=== PATIENT | female | born 1985 | race Caucasian/White ===

== ENCOUNTER 2024-12-28 08:14 | Emergency (ER) | payer OTHER, SELFPAY ==
[2024-12-28] VITALS (17 sets, daily range): BP systolic 98–125; BP diastolic 52–90; PULSE 72–125; RESP 13–34; TEMP 36.4; O2SAT 96–100
--- NOTE | ~2024-12-28 | US_ITS ---
EXAMINATION: US pelvic complete w TV INDICATION: Lower abdomen pain. Right lower quadrant pain. Comparison:CT dated 12/28/2024 TECHNIQUE: Multiple transabdominal and endovaginal sonographic images of the pelvis performed. FINDINGS: The uterus measures 6.8 x 3.6 x 4.6 cm. There is a section scar involving the uter us. The endometrial complex measures 5.8 mm. The right ovary measures 2.7 x 2.9 x 1.2 cm and the left ovary measures 2.5 x 1.8 x 2.3 cm. There ar e small follicles in each ovary. Normal doppler signal in both ovaries. There is no free fluid in the pelvis. There are no abnormal masses seen on either side. IMPRESSION: 1. Unremarkable pelvic ultrasound. Reviewed, dictated and finalized at location A.
--- NOTE | ~2024-12-28 | CT_ITS ---
CLINICAL INDICATION: Right lower quadrant pain and leukocytosis COMPARISON: None. TECHNIQUE: Multiple contiguous axial images of the abdomen and pelvis were performed following the ad ministration of with 100 mL Omnipaque-350 intravenous contrast The dose-length product (DLP) was 414.96 mGy-cm. Automated exposure control and iterative reconstruction technique were employed. FINDINGS/OBSERVATIONS: Visualized lower thorax: The bilateral lung bases are clear. The heart is of normal size, without pericardial effusion. Small hiatal hernia is present. Liver: The liver demonstrates homogeneous enhancement and is not enlarged. Gallbladder and biliary system: The gallbladder is only minimally distended, and otherwise unremarkable. Pancreas: The pancreas enhances homogeneously without ductal dilatation. Spleen: The spleen enhances homogeneously and is not enlarged. Kidneys: The bilateral kidneys enhance symmetrically without hydronephrosis or renal calculi. Adrenal glands: Unremarkable. Gastrointestinal tract: Fecal stasis within the colon. Appendix: The appendix is not definitively visualized. However, no pericecal inflammatory change is identified suggest the presence of acute appendicitis. Vasculature: Unremarkable. Lymph nodes: No pathologically enlarged or morphologically suspicious lymph nodes within the retroperitoneum or at the root of the mesentery. Pelvic structures: The bladder is markedly distended, and otherwise unremarkable. The uterus is anteverted and anteflexed. Body wall and musculoskeletal: Small fat-containing umbilical hernia. No significant degenerative disease within the lower thoracic or lumbosacral spine. IMPRESSION: The appendix is not definitively visualized. However, no pericecal inflammatory change is identified suggest the presence of acute appendicitis. Significant bladder distention Reviewed, dictated and finalized at location A.
[2024-12-28 08:32] LABS: Basophils Absolute Auto 0.1 K/mm3 (0.0-0.1); Basophils Percent Auto 0.8 % (0.2-1.2); Eosinophils Absolute Auto 0.2 K/mm3 (0-0.3); Eosinophils Percent Auto 1.5 % (0-4.4); Hematocrit 39.8 % (37.0-47.0); Hemoglobin 13.2 g/dL (12.0-15.0); Immature Granulocyte Absolute 0.05 K/mm3 (0.00-0.031); Immature Granulocyte Percent A 0.3 % (0-0.5); Lymphocytes Absolute Auto 3.55 K/mm3 (0.9-3.2); Lymphocytes Percent Auto 24.6 % (18.3-44.2); Mean Corpuscular HGB Conc 33.2 g/dl (32-36); Mean Corpuscular Hemoglobin 29.4 pg (26-34); Mean Corpuscular Volume 88.6 fl (80-100); Mean Platelet Volume 9.5 fl (7.4-10.4); Monocytes Absolute Auto 0.8 K/mm3 (0.1-0.6); Monocytes Percent Auto 5.8 % (2.6-8.5); Neutrophils Absolute Auto 9.7 K/mm3 (1.3-6.7); Platelet Count Result 354 k/mm3 (150-375); Red Blood Count 4.49 M/mm3 (4.2-5.4); Red Cell Distribution Width 12.9 % (11.5-14.5); White Blood Count 14.4 K/mm3 (4.5-10.0)
[2024-12-28 08:47] LABS: Alanine Aminotransferase 26 U/L (6-35); Albumin Level 4.7 g/dL (3.5-5.1); Alkaline Phosphatase 176 U/L (38-126); Anion Gap 17 mmol/L (4-12); Aspartate Amino Transferase 25 U/L (14-36); Bilirubin,Total 0.6 mg/dL (0.2-1.3); Blood Urea Nitrogen 10 mg/dL (7-17); Calcium 9.8 mg/dL (8.4-10.2); Carbon Dioxide 18 mmol/L (22-30); Chloride 104 mmol/L (98-107); Estimated CRCL calculation 105 ml/min; Estimated Glomerular Filt Rate > 60; Glucose 114 mg/dL (65-110); Lipase 76 U/L (23-300); Potassium 3.3 mmol/L (3.4-5.0); Sodium 139 mmol/L (137-145)
--- NOTE | 2024-12-28 09:16 | ED_ITS ---
HPI - Abdominal Pain General Chief Complaint: Abdominal Pain Stated Complaint: RLQ pain Time Seen by Provider: 12/28/24 09:02 Source: patient Mode of arrival: ambulatory Limitations: no limitations History of Present Illness HPI narrative: Patient is a 39 y/o female who presents to the ED with c/o lower abdominal pain. Patient reports pain began around 3am overnight. Present throughout mid to lower abdomen, into right lower abdomen, radiating around to R lower back. Pain has been constant since the onset, but more severe since around 6am. Patient has not taken anything for pain. Denies history of similar pain. No previous history of kidney stones, ovarian cysts. Reported some intermittent nausea overnight. Denies vomiting, diarrhea, constipation, fevers, urinary complaints. Related Data Allergies Allergy/AdvReac Type Severity Reaction Status Date / Time ondansetron (From Zofran) AdvReac Intermediate Headache Verified 12/28/24 08:15 Review of Systems 2 Review of Systems: All systems reviewed & are unremarkable except as noted in HPI. All systems reviewed & are unremarkable except as noted in HPI and below Exam 2 Narrative: GENERAL: Uncomfortable appearing, well-nourished, non-toxic, in moderate acute distress d/t pain. HEAD: Normocephalic, atraumatic. RESPIRATORY: Airway patent, respirations nonlabored. Clear to auscultation bilaterally, no rales, rhonchi, wheezing. CARDIOVASCULAR: Regular rate and rhythm without murmurs, rubs, or gallops. ABDOMINAL: Soft, diffuse TTP throughout lower abdomen, RLQ, R lateral abdomen, R CVA region. No appreciable rebound tenderness. Nondistended. Normoactive BS. MUSCULOSKELETAL: Moves all extremities. No gross deformities. SKIN: Warm, dry, normal color. NEURO: A&O X3. Speech clear. Cranial nerves II-XII grossly intact. Steady gait. No ataxic movements. PSYCHIATRIC: Anxious, tearful. Normal interaction. Course Vital Signs Vital signs: Vital Signs Temperature 97.6 F 12/28/24 08:23 Pulse Rate 125 H 12/28/24 08:23 Respiratory Rate 34 H 12/28/24 08:23 Blood Pressure 125/52 L 12/28/24 08:23 Pulse Oximetry 100 12/28/24 08:23 Temperature 97.6 F 12/28/24 08:23 Pulse Rate 84 12/28/24 14:28 Respiratory Rate 14 12/28/24 14:28 Blood Pressure 113/74 12/28/24 14:28 Pulse Oximetry 100 12/28/24 14:28 MDM - Abdominal Pain MDM Narrative Medical decision making narrative: Patient presented to ED with diffuse lower abdominal tenderness, right flank pain. Pain began this morning. No history of similar pain. Patient moderately uncomfortable appearing upon my evaluation, tachycardic, tachypneic. She is afebrile here. Cbc with blood cell count of 14.4. Possibly reactive. CMP with potassium 3.3. Will replace. Bicarb 18, anion gap of 17. Fluids initiated. Stable kidney function. Blood glucose within normal range. Normal LFTs and lipase. UA clear. CT of abdomen/pelvis was obtained and showing some bladder distention. Did not fully visualize appendix, but no pericecal inflammatory stranding to suggest acute appendicitis. Patient was given pain medication in the ED. On re-evaluation, she is feeling much improved. Now resting comfortably. On repeat abdominal exam, she has some tenderness in left lower quadrant, right upper quadrant. No significant focal right lower quadrant tenderness. I have low suspicion for appendicitis at this time. Discussed possibility of constipation, gas pains. Patient reports her last bowel movement was yesterday and was normal. Personal review of CT imaging does show a moderate amount of stool throughout right colon. Will also obtain ultrasound of pelvis to rule out ovarian etiology. Pelvic ultrasound unremarkable. Discussed lab and imaging findings extensively with patient. Patient has not required anything further for pain. She is feeling improved. Feel she is safe for discharge home at this time. Recommended close outpatient follow-up with primary care doctor for further evaluation. Discussed constipation management. Discussed strict return precautions. She agrees with plan. Discharged in stable condition. Medical Records Attestation: I reviewed the patient's medical records. Lab Data Attestation: I reviewed the patient's lab results. 12/28/24 08:26 12/28/24 08:26 Labs: Lab Results 12/28/24 12/28/24 12/28/24 Range/Units 08:26 10:12 10:13 WBC 14.4 H (4.5-10.0) K/mm3 RBC 4.49 (4.2-5.4) M/mm3 Hgb 13.2 (12.0-15.0) g/dL Hct 39.8 (37.0-47.0) % MCV 88.6 (80-100) fl MCH 29.4 (26-34) pg MCHC 33.2 (32-36) g/dl RDW 12.9 (11.5-14.5) % Plt Count 354 (150-375) k/mm3 MPV 9.5 (7.4-10.4) fl Immature Gran % (Auto) 0.3 (0-0.5) % Neut % (Auto) 67.0 (45.5-73.1) % Lymph % (Auto) 24.6 (18.3-44.2) % Brooks % (Auto) 5.8 (2.6-8.5) % Eos % (Auto) 1.5 (0-4.4) % Baso % (Auto) 0.8 (0.2-1.2) % Lymph # (Auto) 3.55 H (0.9-3.2) K/mm3 Brooks # (Auto) 0.8 H (0.1-0.6) K/mm3 Eos # (Auto) 0.2 (0-0.3) K/mm3 Baso # (Auto) 0.1 (0.0-0.1) K/mm3 Abs Immat Gran (auto) 0.05 H (0.00-0.031) K/mm3 Absolute Neuts (auto) 9.7 H (1.3-6.7) K/mm3 Absolute Nucleated RBC 0.000 (0.0-0.012) K/mm3 Nucleated RBC % 0.0 (0.0-0.2) % Sodium 139 (137-145) mmol/L Potassium 3.3 L (3.4-5.0) mmol/L Chloride 104 (98-107) mmol/L Carbon Dioxide 18 L (22-30) mmol/L Anion Gap 17 H (4-12) mmol/L BUN 10 (7-17) mg/dL Creatinine 0.58 L (0.7-1.0) mg/dL Estim Creat Clear Calc 105 ml/min Estimated GFR > 60 (59 - ) Glucose 114 H (65-110) mg/dL Calcium 9.8 (8.4-10.2) mg/dL Total Bilirubin 0.6 (0.2-1.3) mg/dL AST 25 (14-36) U/L ALT 26 (6-35) U/L Alkaline Phosphatase 176 H (38-126) U/L Total Protein 9.0 H (6.3-8.2) g/dL Albumin 4.7 (3.5-5.1) g/dL Lipase 76 (23-300) U/L Urine Color Yellow (Yellow) Urine Appearance Clear (Clear) Urine pH 8.5 (5.0-9.0) Ur Specific [place] 1.004 (1.001-1.035) Urine Protein Negative (Negative) mg/dL Urine Glucose (UA) Negative (Negative) mg/dL Urine Ketones 1+ H (Negative) mg/dL Ur Blood (Man) Negative (Negative) Urine Nitrate Negative (Negative) Urine Bilirubin Negative (Negative) Urine Urobilinogen 0.2 (<2.0) mg/dL Leukocyte Esterase Rfl Negative (Negative) LUISITO/UL POC Urine HCG, Qual Negative (Negative) Imaging Data Attestation: I personally reviewed and interpreted this imaging study as follows: Radiologist's impression: ITS Impressions Abdomen/Pelvis CT 12/28/24 10:28 IMPRESSION: The appendix is not definitively visualized. However, no pericecal inflammatory change is identified suggest the presence of acute appendicitis. Significant bladder distention Pelvic/Transvag US 12/28/24 13:11 IMPRESSION: 1. Unremarkable pelvic ultrasound. Discharge Plan Discharge Clinical Impression: Lower abdominal pain Patient Disposition: Home, Self-Care Condition: Stable Instructions: Antibiotic Form, Constipation (ED), High Fiber Diet (ED), Abdominal Pain (ED) Additional Instructions: Your workup here was reassuring. Rest and stay well hydrated. Continue Tylenol and ibuprofen as needed for pain. Utilize MiraLax or stool softeners as needed for constipation. Recommended close follow-up with primary care doctor for further evaluation. Return to the ED if you experience worsening or severe pain, unable to keep down food or drink, difficulty breathing, severe constipation, rectal bleeding, dark black stools, persistent fevers, or any other symptoms of concern Patient Language: Beninese Follow-up/Referrals: UNKNOWN,DOCTOR [Primary Care Provider] - Time of Disposition: 13:23
--- OUTSIDE RECORDS SUMMARY | 2024-12-28 09:19 | XMS_ITS | Clinical Summary ---
Author Organization [facility] Address [address] [place] [address] Care Team Providers Care Scratch Brusher Name Role Phone Lucina Herndon MD Unavailable [phone] Saige Rizzo CIVIL ENGINEERING INTERN-CUSTOMER OPERATIONS ASSOCIATE Unavailable [phone] Source Comments [facility],non-owned Affiliates and Associated Physician Practices is amultiple site organization consisting of ambulatory clinics and hospital sitesin [place], [place], [place] and [place]. This disclosure is being madepursuant to the Care Everywhere program and may not contain all information available regarding this patient. Last updated 18.[facility] Allergies Active Allergy Reactions Criticality Noted Date Comments Ondansetron Headache 02/04/2017 Medications * Be aware that medications may not be up to date on this document. Alwaysverify current medications with the patient. Medication Sig Dispensed Refills Start Date End Date Status imiquimod (Aldara) 5 % cream APPLY A THIN LAYER TOPICALLY TO AFFECTED AREA AND COVER WITH DUCT TAPE EVERY NIGHT AT BEDTIME. DISCONTINUE WHEN BLISTERING OCCURS 06/18/2023 Active predniSONE (Deltasone) 20 MG tablet Take one tablet twice daily for 3 days. Take with food. Avoid NSAIDs. 6 tablet 08/12/2023 Active fluconazole (Diflucan) 150 MG tablet Take 1 tablet by mouth at symptom onset. May repeat in 3 days if not improved. 2 tablet 07/29/2024 Active Active Problems Problem Noted Date Diagnosed Date Anemia during in third trimester 09/05 Resolved Problems Problem Noted Date Diagnosed Date Resolved Date Echogenic focus of heart of fetus affecting antepartum care of mother 07/11/2019 09/05/2019 GBS (group B streptococcus) UTI complicating 06/13/2019 11/26/2019 Supervision of other normal , antepartum 05/16/2019 11/26/2019 (spontaneous vaginal delivery) 09/01/2017 10/14/2017 Supervision of normal 02/11/2017 09/01/2017 Overview (06/15/2017): [facility] Male - desires circ Peds - SW peds Desires cord blood donation GBS bacteriuria 01/29/2017 09/01/2017 Immunizations Name Administration Dates Next Due Covid Pfizer primary monoval ent 12+ yr 0.3mL Purple cap 10/11/2020,09/19/2020 MMR 11/25/2019() TDAP (7yrs+) 11/25/2019(Deferred: See Comments - pt received tdap this ),09/05/2019,06/15/2017 Family History Medical History Relation Name Comments Hypertension Father Thyroid Disease Mother Breast Cancer at or under age 50 Paternal Aunt Breast Cancer after age 50 or unknown Paternal Grandmo ther Relation Name Status Comments Brother Alive Father Alive Mother Alive Paternal Aunt Paternal Grandmother Social History Tobacco Use Types Packs/Day Years Used Date Smoking Tobacco: Never Passive Smoke Exposure: Never Smokeless Tobacco: Never Tobacco Cessation:Counseling Given: Not Answered Alcohol Use Standard Drinks/Week Comments No 0 (1 standard drink = 0.6 oz pur e alcohol) PHQ-2 Answer Date Recorded Patient Health Questionnaire-2 Score 0 07/29/2024 [place] Depression Scale Answer Date Recorded Last EPDS Total Score Not on file 01/04/2020 The thought of harming myself has occurred to me . Never 01/04/2020 Sex and Gender Information Value Date Recorded Sex Assigned at Not on file Gender Identity Female Sexual Orientation Not on file Last Filed Vital Signs Vital Sign Reading Time Taken Comments Blood Pressure 114/67 03/16/2024 9:16 AM CDT Pulse 107 03/16/2024 9:16 AM CDT Temperature 37.1 C (98.7 F) 03/16/2024 9:16 AM CDT Respiratory Rate 18 03/16/2024 9:16 AM CDT Oxygen Saturation 99% 03/16/2024 9:16 AM CDT Inhaled Oxygen Concentration - - Weight 72.6 kg (160 lb) 03/16/2024 9:16 AM CDT Height 165.1 cm (5' 5 ) 03/16/2024 9:16 AM CDT Body Mass Index 26.63 03/16/2024 9:16 AM CDT Plan of Treatment Health Maintenance Due Date Last Done Comments HEPATITIS C SCREENING 10/19/2005 HEPATITIS B VACCINE (1 of 3 - 19+ 3-dose series) 2006 COVID-19 VACCINE (2023-2 5 season) 2024 10/21/2021, 10/11/2020, 09/19/2020 INFLUENZA VACCINE (#1) 2024 06/15/2017 DEPRESSION SCREENING 09/27/2024 12/07/2022, 08/24/2022 PAP with HPV 10/28/2026 10/28/2021, 04/24/2019 DTAP/TDAP/TD VACCINES (3 - T d or Tdap) 09/05/2029 09/05/2019, 06/15/2017 ZOSTER VACCINE (1 of 2) 2037 HIV SCREENING Completed 06/09/2019, 01/25/2017 HIB VACCINE Aged Out No longer eligi ble based on patient's age to complete this topic HPV VACCINE Aged Out No longer eligi ble based on patient's age to complete this topic MENINGOCOCCAL (Group B) VACCINE SHARED DECISION-MAKING Aged Out No longer eligible based on patient's age to complete this topic MENINGOCOCCAL GROUPS A/C/Y/W VACCINE Aged Out No longer eligible b ased on patient's age to complete this topic PNEUMOCOCCAL VACCINE Aged Out No long er eligible based on patient's age to complete this topic Procedures Procedure Name Priority Date/Time Associated Diagnosis Comments PAP IG LB +HPV APTIMA REFLEX 16,18/45 FOR HR POS Routine 10/28/2021 11:25 AM DENTAL HYGIENIST Well woman exam with routine gynecological exam HIV-1 HIV-2 ANTIBODY + HIV P24 AG PANEL Routine 06/09/2019 3:44 PM CDT Supervision of other normal , antepartum from Last 3 Months or Most Recently Relevant to Health Maintenance Results * PAP IG LB +HPV APTIMA REFLEX 16,18/45 FOR HR POS (10/28/2021 11:25 AM DENTAL HYGIENIST) Diagnosis [facility] ACCOUNT BILL Comment: NEGATIVE FOR INTRAEPITHELIAL LESION OR MALIGNANCY. REACTIVE CELLULAR CHANGES AND/OR REPAIR ARE PRESENT. Specimen Adequacy [facility] ACCOUNT BILL Comment: Satisfactory for evaluation. Endocervical and/or squamous metaplastic cells (endocervical component) are present. Clinician Provided ICD10 [facility] ACCOUNT BILL Comment: Z01.419 Z30.432 Performed by [facility] ACCOUNT BILL Comment:Marcia Franco, Cytote chnologist (ASCP) Electronically Signed by [facility] ACCOUNT BILL Comment:Camryn Graham MD, Pa thologist Comment . [facility] ACCOUNT BILL Note [facility] ACCOUNT BILL Comment: The Pap smear is a screening test designed to aid in the detection of premalignant and malignant conditions of the uterine cervix. It is not a diagnostic procedure and should not be used as the sole means of detecting cervical cancer. Both false-positive and false-negative reports do occur. . IGLBP CPT Code Automation [facility] ACCOUNT BILL Comment: This liquid based ThinPrep(R) pap test was screened with the use of an image guided system. Human papillomavirus Aptima Negative Negative [facility] ACCOUNT BILL Comment: This nucleic acid amplification test detects fourteen high-risk HPV types (16,18,31,33,35,39,45,51,52,56,58,59,66,68) without differentiation. ENTIRE ENDOCERVIX / Unknown 10/28/2021 11:25 AM DENTAL HYGIENIST 10/29/2021 Narrative [facility] ACCOUNT BILL - 10/31/2021 5:08 PM DENTAL HYGIENIST No. of containers..01 ThinPrep Vial Resulting Agency Comment Lab Testing performed at: [address] [id number] Christy Gordon MD LAB - PATHOLOGY/CYTO LOGY ORDERABLES [facility] ACCOUNT BILL [address] [place] [address] * HIV-1 HIV-2 ANTIBODY + HIV P24 AG PANEL (06/09/2019 3:44 PM CDT) HIV Screen 4th Generation w Reflex Non Reactive Non Reactive [facility] ACCOUNT BILL Blood BLOOD SPECIMEN / Unknown 06/09/2019 3:44 PM CDT 06/09/2019 Narrative Resulting Agency Comment Lab Testing performed at: [facility] [place] [address] [facility] [id number] Christy Gordon MD LAB - CHEMISTRY BAM ZAMORA [facility] ACCOUNT BILL [address] [place] [address] from Last 3 Months or Most Recently Relevant to Health Maintenance Advance Directives Documents on File Type Date Recorded Patient Associate Professor Of Biostatistics Expl anation Adv Directive/Living Will/POA 02/04/2017 * Full Code (Latest Code Status on File) Date Activated Date Inactivated Comments 11/23/2019 5:09 AM 11/27/2019 4:16 PM * Full Code Date Activated Date Inactivated Comments 08/31/2017 10:37 PM 09/03/2017 3:30 PM * Full Code Date Activated Date Inactivated Comments 02/23/2017 7:52 PM 02/23/2017 10:48 PM * Full Code Date Activated Date Inactivated Comments 02/12/2017 10:24 PM 02/14/2017 5:52 PM Care Teams Scratch Brusher Relationship Specialty Start Date End Date Saige Rizzo, CIVIL ENGINEERING INTERN-CUSTOMER OPERATIONS ASSOCIATE [address] [place] [address] PCP - Attributed-[employer] [facility] 08/27/24 Lucina Herndon MD Internal Medicine 02/04/17
--- OUTSIDE RECORDS SUMMARY | 2024-12-28 09:19 | XMS_ITS | Encounter Summary ---
Author Organization [facility] Address [address] [place] [address] Care Team Providers Care Can Labeler Name Role Phone Lucina Herndon MD Primary Care Provider Lucina Herndon MD Unavailable Afua Chambers PROMOS EXECUTIVE PRODUCER-ATHLETIC TEAM PHYSICIAN Unavailable [phone] Afua Chambers PROMOS EXECUTIVE PRODUCER-ATHLETIC TEAM PHYSICIAN Unavailable [phone] Saige Rizzo PROMOS EXECUTIVE PRODUCER-ATHLETIC TEAM PHYSICIAN Unavailable Lucina Herndon MD Unavailable Encounter Details Date Type Department Care Team (Late st Contact Info) Description 04/29/2015 Lab Requisition [facility] [address] [place] [address] Unknown, Provider Social History Tobacco Use Types Packs/Day Years Used Date Smoking Tobacco: Never Assessed Sex and Gender Information Value Date Recorded Sex Assigned at Not on file Gender Identity Female Sexual Orientation Not on file documented as of this encounter Plan of Treatment Not on file documented as of this encounter Procedures Procedure Name Priority Date/Time Associated Diagnosis Comments RUBEOLA ANTIBODY IGG Routine 04/29/2015 3:47 PM CDT MUMPS ANTIBODY IGG Routine 04/29/2015 3: 47 PM CDT VARICELLA ZOSTER ANTIBODY IGG Routine 04/29/2015 3:47 PM CDT RUBELLA ANTIBODY IGG Routine 04/29/2015 3:47 PM CDT HEPATITIS B SURFACE ANTIBODY Routine 04/29/2015 3:47 PM CDT documented in this encounter Results * VARICELLA ZOSTER ANTIBODY IGG (04/29/2015 3:47 PM CDT) Varicella zoster Virus Antibody IgG 2986.0 IV 05/01/2015 2:06 PM CDT [facility] ([facility]) Comment: INTERPRETIVE INFORMATION: VZV Ab, IgG 134 IV or less ....... Negative - No significant level of detectable IgG varicella- zoster antibody. 135 -165 IV .......... Equivocal - Repeat testing in 10-14 days may be helpful. 166 IV or greater .... Positive - IgG antibody to varicella-zoster detected, which may indicate a current or past varicella-zoster infection. The best evidence for current infection is a significant change on two appropriately timed specimens, where both tests are done in the same laboratory at the same time. Blood specimen (specimen) BLOOD SPECIMEN / Unknown Venipuncture / Unknown 04/29/2015 3:47 PM CDT 04/29/2015 6:06 PM CDT Provider Unknown LAB - CHEMISTRY BAM ZAMORA [facility] Organization Address City/State/ZIP Co de Phone Number [facility]) [address] * RUBEOLA ANTIBODY IGG (04/29/2015 3:47 PM CDT) Measles (Rubeola) Antibody IgG >300.0 AU/mL 05/01/2015 3:59 PM CDT [facility] ([facility]) Comment: INTERPRETIVE INFORMATION: Measles (Rubeola) Antibody, IgG 24.9 AU/mL or less........ Negative - No significant level of detectable measles (rubeola) IgG antibody. 25.0-29.9 AU/mL .......... Equivocal - Repeat testing in 10-14 days may be helpful. 30.0 AU/mL or greater .... Positive - IgG antibody to measles (rubeola) detected which may indicate a current or past exposure/immunization to measles (rubeola). The best evidence for current infection is a significant change on two appropriately timed specimens, where both tests are done in the same laboratory at the same time. Blood specimen (specimen) BLOOD SPECIMEN / Unknown Venipuncture / Unknown 04/29/2015 3:47 PM CDT 04/29/2015 6:06 PM CDT Provider Unknown LAB - CHEMISTRY BAM ZAMORA Performing Organization Address [facility] Co de Phone Number [facility] [address] * MUMPS ANTIBODY IGG (04/29/2015 3:47 PM CDT) Mumps Virus Antibody IgG 223.0 AU/mL 05/01/2015 2:03 PM CDT [facility] ([facility]) Comment: INTERPRETIVE INFORMATION: Mumps Ab, IgG by SAUL 8.9 AU/mL or less .... Negative - No significant level of detectable IgG mumps virus antibody 9.0-10.9 AU/mL ....... Equivocal - Repeat testing in 10-14 days may be helpful 11.0 AU/mL or greater: Positive - IgG antibody to mumps virus detected, which may indicate a current or past exposure/ immunization to mumps virus. The best evidence for current infection is a significant change on two appropriately timed specimens, where both tests are done in the same laboratory at the same time. Blood specimen (specimen) BLOOD SPECIMEN / Unknown Venipuncture / Unknown 04/29/2015 3:47 PM CDT 04/29/2015 6:06 PM CDT Provider Unknown LAB - CHEMISTRY BAM ZAMORA Performing Organization Address [facility] Co de Phone Number [facility] [address] * RUBELLA ANTIBODY IGG (04/29/2015 3:47 PM CDT) Rubella Antibody IgG Positive - Immune 04/29/2015 7:33 PM CDT [facility] Blood BLOOD SPECIMEN / Unknown Venipuncture / Unknown 04/29/2015 3:47 PM CDT 04/29/2015 6:06 PM CDT Provider Unknown LAB - SEROLOGY ORDER FRANK Performing Organization Address [facility] Co de Phone Number [facility] [address] [place] [address] * (ABNORMAL) HEPATITIS B SURFACE ANTIBODY (04/29/2015 3:47 PM CDT) HBsAb REACTIVE(A ) Non Reactive 04/29/2015 7:15 PM CDT [facility] Blood BLOOD SPECIMEN / Unknown Venipuncture / Unknown 04/29/2015 3:47 PM CDT 04/29/2015 6:06 PM CDT Provider Unknown LAB - CHEMISTRY ORDE SERA Performing Organization Address [facility] Co de Phone Number [facility] [address] [place] [address] documented in this encounter Visit Diagnoses Not on filedocumented in this encounter Additional Health Concerns Infection Onset Date Last Indicated Resolved Time COVID-19 Under Investigation 08/05/2021 08/05/2021 08/06/2021 2:32 AM MEDIA MONITOR COVID-19 Under Investigation 09/14/2021 09/14/2021 09/14/2021 11:45 AM MEDIA MONITOR COVID-19 Under Investigation 09/29/2021 09/29/2021 09/30/2021 6:42 AM MEDIA MONITOR COVID-19 Confirmed 09/29/2021 09/29/2021 4:33 AM MEDIA MONITOR documented as of this encounter Care Teams Can Labeler Relationship Specialty Start Date End Date Lucina Herndon MD PCP - General Internal Medicine 02/25/16 02/03/17 Afua Chambers APRN-ATHLETIC TEAM PHYSICIAN [address] [address] PCP - Attributed-[facility] 09/27/23 02/10/24 Afua Chambers, PROMOS EXECUTIVE PRODUCER-ATHLETIC TEAM PHYSICIAN [address] [address] PCP - Attributed-[facility] 03/27/24 08/26/24 Saige Rizzo, PROMOS EXECUTIVE PRODUCER-ATHLETIC TEAM PHYSICIAN [address] [place] [address] PCP - Attributed-[facility] [address] 08/27/24 Lucina Herndon MD [address] [place] [address] [address] [address] PCP - Attributed-[facility] 03/12/17 09/29/18 Lucina Herndon MD Internal Medicine 02/04/17 documented as of this encounter
[2024-12-28] MEDS: SODIUM CHLORIDE 0.9% IV 1,000 ML 999 ML IV CONT (09:20)
[2024-12-28] MEDS: MORPHINE SULFATE (*CRX) 4 MG/ML INJ IV PUSH (09:20)
--- OUTSIDE RECORDS SUMMARY | 2024-12-28 09:20 | XMS_ITS | Clinical Summary ---
Author Organization [facility] Address [address] [place] [address] Care Team Providers Care Data Management Consultant Name Role Phone Annalisa Ramachandran MD Primary Care Provider + Allergies Active Allergy Reactions Criticality Noted Date Comments Ondansetron Headache 10/23/2024 Migraine Medications Multiple Vitamin (MULTIVITAMIN ADULT OR) Active probiotic (FLORAJEN3) Cap capsule Take 1 capsule by mouth 3 (three) times daily with meals. Active cetirizine (ZYRTEC) 10 MG tablet Take 1 tablet (10 mg total) by mouth daily. Active albuterol sulfate HFA 108 (90 Base) MCG/ACT inhalerIndicati ons:Wheezing Inhale 2 puffs into the lungs every 6 (six) hours as needed for Wheezing. 8 g 10/23/2024 Active Active Problems No known active problems Encounters Date Type Department Care Team Description 12/01/2024 Computerlogy Message Enc [place] [id number] [facility] [address] [place] [phone] [facility] Provider lab results. 10/23/2024 9:10 AM RACEHORSE TRAINER Office Visit [facility] [address] [facility] [address] [place], [place] [id number] Annalisa Ramachandran MD Annual (Patient present to establish care with complete health physical); Cough (Has to take zyrtec daily or she will have a cough. ) 10/23/2024 Travel from Last 3 Months Family History Medical History Relation Comments No Known Problems Brother Heart Disease Father Hypertension Father Asthma Maternal Grandmother Thyroid Disease Mother No Known Problems Son 1 No Known Problems Son 2 Relation Status Comments Brother Alive Father Alive Maternal Grandmother Mother Alive Son 1 Alive Son 2 Alive Social History Tobacco Use Types Packs/Day Years Used Date Smoking Tobacco: Never Passive Smoke Exposure: Never Smokeless Tobacco: Never Tobacco Cessation:Counseling Given: No Alcohol Use Standard Drinks/Week Comments Not Currently 0 (1 standard drink = 0.6 oz pur e alcohol) PHQ-2 Answer Date Recorded Patient Health Questionnaire-2 Score 0 10/23/2024 Comments No Sex and Gender Information Value Date Recorded Sex Assigned at Female 10/23/2024 9:16 AM RACEHORSE TRAINER Legal Sex Female 3:43 PM RACEHORSE TRAINER Gender Identity Female 10/23/2024 9:16 AM RACEHORSE TRAINER Sexual Orientation Straight 10/23/2024 9: 16 AM RACEHORSE TRAINER Occupation Industry Job Start Date Job End Date 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 Not on file Not on file Not on file Last Filed Vital Signs Vital Sign Reading Time Taken Comments Blood Pressure 102/70 10/23/2024 9:16 AM RACEHORSE TRAINER Pulse 89 10/23/2024 9:16 AM RACEHORSE TRAINER Temperature 36.9 C (98.4 F) 10/23/2024 9:16 AM RACEHORSE TRAINER Respiratory Rate 16 10/23/2024 9:16 AM RACEHORSE TRAINER Oxygen Saturation 100% 10/23/2024 9:16 AM RACEHORSE TRAINER Inhaled Oxygen Concentration - - Weight 76.7 kg (169 lb) 10/23/2024 9:16 AM RACEHORSE TRAINER Height 165.7 cm (5' 5.25 ) 10/23/2024 9:16 AM CS T Body Mass Index 27.91 10/23/2024 9:16 AM RACEHORSE TRAINER Plan of Treatment Upcoming Encounters Date Type Department Care Team (Late st Contact Info) Description 10/30/2025 9:10 AM RACEHORSE TRAINER Office Visit [facility] Family Medicine - [place] [address] [place] [phone] Annalisa Ramachandran MD [address] [place] [id number] Health Maintenance Due Date Last Done Comments Hepatitis C 2005 Hepatitis B Vaccines (1 of + 3-dose series) 2006 COVID-19 Vaccine (2023-2 5 season) 2024 10/11/2020, 09/19/2020 Cervical Cancer Screening Pa p Smear (Age 30 to 64) Every 3 Years 10/28/2024 10/28/2021 Annual Physical 10/23/2025 10/23/2024 Cervical Cancer Screening Pa p with HPV Testing (Age 30 to 64) Every 5 Years 10/28/2026 10/28/2021 Cervical Cancer Screening wi th HPV 10/28/2026 DTaP, Tdap and Td Vaccines ( 3 - Td or Tdap) 09/05/2029 09/05/2019, 06/15/2017 PHQ-2 (Physician [place]) Completed 10/23/2024 HPV Vaccines Aged Out No longer eligi ble based on patient's age to complete this topic Meningococcal B Vaccine Aged Out No l onger eligible based on patient's age to complete this topic Meningococcal Vaccine Aged Out No jeannine vinicio eligible based on patient's age to complete this topic Pneumococcal Vaccine: Pediatrics (0 to 5 Years) and At-Risk Patients (6 to 64 Years) Aged Out No longer eligible b ased on patient's age to complete this topic RSV Immunizations Under 20 Months Aged Out No longer eligible b ased on patient's age to complete this topic Procedures Procedure Name Priority Date/Time Associated Diagnosis Comments VITAMIN D, 25 OH Today 11/16/2024 7:48 AM RACEHORSE TRAINER Vitamin D deficiency TSH W/REFLEX Today 11/16/2024 7:47 AM RACEHORSE TRAINER Routine general medical examination at a health care facility LIPID PANEL Today 11/16/2024 7:47 AM RACEHORSE TRAINER Routine general medical examination at a health care facility HEMOGLOBIN, GLYCOSYLATED Today 11/16/2024 7:47 AM RACEHORSE TRAINER Routine general medical examination at a health care facility from Last 3 Months Results * (ABNORMAL) VITAMIN D, 25 OH (11/16/2024 7:48 AM RACEHORSE TRAINER) VITAMIN D 25 HYDROXY S/P/B 29.4(L) 30.0 - 100.0 ng/mL [facility] 1 Comment: Vitamin D deficiency has been defined by the [place] of Medicine and an Endocrine Society practice guideline as a level of serum 25-OH vitamin D less than 20 ng/mL (1,2). The Endocrine Society went on to further define vitamin D insufficiency as a level between 21 and 29 ng/mL (2). 1. IOM ([place] of Medicine). 2010. Dietary reference intakes for calcium and D. [place]: The National Academies Press. 2. Dayanara MF, Fabrizio RIDER, Deven BORJAS, et al. Evaluation, treatment, and prevention of vitamin D deficiency: an Endocrine Society clinical practice guideline. JCEM. 2010; 96(1):1911-30. 11/16/2024 7:48 AM RACEHORSE TRAINER 11/16/2024 Narrative [facility] - 11/17/2024 7:06 AM RACEHORSE TRAINER Performed at: - [facility] [id number] Plasterer Tender: Haresh Kraft PhD, Phone: [phone] us Annalisa Ramachandran MD LABORATORY Final Re sult Performing Organization Address [facility] de Phone Number [facility] [address] [facility] * TSH W/REFLEX (11/16/2024 7:47 AM RACEHORSE TRAINER) [facility] TSH 1.260 0.450 - 4.50 uIU/mL [facility] 1 11/16/2024 7:47 AM RACEHORSE TRAINER 11/16/2024 Narrative [facility] - 11/17/2024 3:06 AM RACEHORSE TRAINER Performed at: [facility] [id number] Plasterer Tender: Haresh Kraft PhD, Phone: [phone] us Annalisa Ramachandran MD LABORATORY Final Re sult Performing Organization Address [facility] Co de Phone Number [facility] [address] [place] [address] [facility] * HEMOGLOBIN, GLYCOSYLATED (11/16/2024 7:47 AM RACEHORSE TRAINER) HGB A1C 5.6 4.8 - 5.6 % [facility] 1 Comment: Prediabetes: 5.7 - 6.4 Diabetes: >6.4 Glycemic control for adults with diabetes: <7.0 11/16/2024 7:47 AM RACEHORSE TRAINER 11/16/2024 Narrative [facility] - 11/17/2024 3:06 AM RACEHORSE TRAINER Performed at: - [facility] [id number] Plasterer Tender: Haresh Kraft PhD, Phone: [phone] Annalisa Ramachandran MD LABORATORY Final Re sult Performing Organization Address [facility] Co de Phone Number [facility] [address] [place] [address] [facility] * (ABNORMAL) LIPID PANEL (11/16/2024 7:47 AM RACEHORSE TRAINER) Pathologist [facility] CHOLESTEROL 182 100 - 199 mg/dL [facility] 1 TRIGLYCERIDES 89 0 - 149 mg/dL [facility] 1 HDL 46 >39 mg/dL [facility] 1 VLDL CALCULATION 16 5 - 40 mg/dL [facility] 1 LDL (CALCULATED) 120(H) 0 - 99 mg/dL [facility] 1 11/16/2024 7:47 AM RACEHORSE TRAINER 11/16/2024 Narrative [facility] - 11/17/2024 3:06 AM RACEHORSE TRAINER Performed at: [facility] [id number] Plasterer Tender: Haresh Kraft PhD, Phone: [phone] us Annalisa Ramachandran MD LABORATORY Final Re sult Performing Organization Address [facility] [place] [address] [facility] from Last 3 Months Insurance MEDICA Care Teams Data Management Consultant Relationship Specialty Start Date End Date Annalisa Ramachandran MD [address] [address] PCP - General FAMILY PRACTICE 10/23/24
--- OUTSIDE RECORDS SUMMARY | 2024-12-28 09:20 | XMS_ITS | Continuity of Care Document ---
Author Organization [facility] Address [address] [place] [address] Phone Care Team Providers Care Package Wrapper Name Role Phone Kaden Beltre MD Unavailable Unavailable Advance Directives Directive Yes / No Effective Date File Name No Information Encounters Encounter Description Practice Location Reason(s) For Visit Diagnoses Date Provider Providers Copied on Encounter [facility] , [address], [place], [place], [id number], tel:[phone] [facility] [place] No Information Alexsander Alfonso. [address], [place], [place], [address], . tel:[phone] Family History Family Member Type Diagnosis Age At Onset No Information Payers Payer name Insurance type Covered republican ID Authoriza tion(s) No Information Social History [...]
[2024-12-28] MEDS: HYDROmorphone HCL INJ (*CRX) 1 MG/ML SYR IV PUSH (09:57)
[2024-12-28 10:15] LABS: BEDSIDEPREGUCG Negative (Negative)
[2024-12-28 10:28] LABS: Add Urine Microscopic? NO; Appearance Urine Clear (Clear); Bilirubin Urine Negative (Negative); Blood Urine Negative (Negative); Color Urine Yellow (Yellow); Glucose Urine UA Negative (Negative); Ketones Urine 1+ mg/dL (Negative); Leukocyte Esterase Ur Negative LEU/UL (Negative); Nitrate Urine Negative (Negative); Protein Urine Negative (Negative); Specific Grav Ur 1.004 (1.001-1.035); Urobilinogen Urine 0.2 mg/dL (<2.0); pH Urine 8.5 (5.0-9.0)
== END 2024-12-28 14:25 | disposition home or self-care (01) ==
PROVIDERS: Emergency Medicine; Emergency Provider Physician Assistant
DX: R10.31 Right lower quadrant pain (principal); N32.89 Other specified disorders of bladder
CPT/HCPCS: 36415; 74177; 76830; 76856; 80053; 81003; 81025; 83690; 85025; 96361; 96374; 96375; 99284; J1171; J2270; J7030; Q9967

== ENCOUNTER 2025-08-17 18:39 | Emergency (ER) | payer OTHER, SELFPAY ==
--- OUTSIDE RECORDS SUMMARY | 2021-08-07 05:35 | XMS_ITS | Continuity of Care Document ---
Author Organization [facility] Address [address] [place] [address] Phone Care Team Providers Care Enroute Controller Name Role Phone Kaden Beltre MD Unavailable Unavailable Advance Directives Directive Yes / No Effective Date File Name No Information Encounters Encounter Description Practice Location Reason(s) For Visit Diagnoses Date Provider Providers Copied on Encounter [facility] , [address], [place], [place], [address], tel:[phone] [facility] [place] No Information Alexsander Alfonso. [address], [place], [place], [address], . tel:[phone] Family History Family Member Type Diagnosis Age At Onset No Information Payers Payer name Insurance type Covered democrat ID Authoriza tion(s) No Information Social History Type Description Quantity Date Captured Comments Sex Female Smoking Status No Information Chief Complaint And Reason For Visit No Information Reason For Referral Reason For Referral No Information History Of Present Illness Encounter Date Complaint History Of Prese nt Illness No Information Functional Status Date Functional Assessmen t No Information Instructions Date Instruction Additional Infor mation No Information Assessments Type Assessment Date No Information Patient Care Teams Name Effective Dates (start - stop) Status Members No Information
--- OUTSIDE RECORDS SUMMARY | 2021-08-07 05:35 | XMS_ITS | Continuity of Care Document ---
Author Organization [facility] Address [address] [place] [address] Phone Care Team Providers Care Gambreler Helper Name Role Phone Kaden Beltre MD Unavailable Unavailable Advance Directives Directive Yes / No Effective Date File Name No Information Encounters Encounter Description Practice Location Reason(s) For Visit Diagnoses Date Provider Providers Copied on Encounter [facility] , [address], [place], [place], [id number], tel:[phone] [facility] [place] No Information Alexsander Alfonso. [address], [place], [place], [address], . tel:[phone] Family History Family Member Type Diagnosis Age [...]
--- NOTE | ~2025-08-17 | XR_ITS ---
EXAMINATION: XR ankle LT min 3V DATE: 08/17/2025 19:03 INDICATION: Trauma. TECHNIQUE: 4 views of left ankle were obtained. COMPARISON: None. FINDINGS: Chip fracture of the tip of the lateral malleolus due to avulsion by the lateral ligament is noted. There is no widening of ankle mortise. Soft tissue swelling of the lateral aspect of the ankle with effusion in the ankle joint suggesting sprain the lateral ligament. IMPRESSION: 1. Soft tissue changes of the sprained lateral ligaments. Small effusion in the ankle joint. 2. Small avulsion chip fracture of the tip of lateral malleolus. Reviewed, dictated and finalized at location T. AINER COORDINATOR
--- OUTSIDE RECORDS SUMMARY | 2025-08-17 18:41 | XMS_ITS | Clinical Summary ---
Author Organization [facility] Address [address] [place] [address] Phone Care Team Providers Care Nurse Advocate Name Role Phone Provider, None Primary Care Provider Nara Chris MD Unavailable Allergies Active Allergy Reactions Criticality Noted Date Comments Metoclopramide Anxiety,Other (see Comments) Low 07/2025 Povidone Iodine Rash 03/20/2025 Medications cetirizine (ZyrTEC) 10 MG Tablet Take 10 mg by mouth nightly. Active acetaminophen (TYLENOL) 325 MG Tablet Take 650 mg by mouth. Active prochlorperazi ne (COMPAZINE) 10 MG TabletIndicati ons:Classical Hodgkin lymphoma Take 1 Tablet by mouth every 6 hours as needed for Nausea - 1st line or Nausea - 2nd line. 40 Tablet 3 5 Active docusate sodium (COLACE) 100 MG Capsule 5 Active MAGNESIUM CITRATE PO Take by mouth. Active ergocalciferol (VITAMIN D) 44540 UNIT Capsule Take 1 Capsule by mouth once a week for 8 doses. 8 Capsule 5 09/13/20 25 Active ondansetron (ZOFRAN) 4 MG TabletIndicati ons:Classical Hodgkin lymphoma Take 2 Tablets by mouth every 8 hours as needed for Nausea - 1st line. 40 Tablet 3 5 Active pantoprazole (PROTONIX) 40 MG Tablet Delayed Response Take 1 Tablet by mouth daily. 90 Tablet 5 Active Vitamin D, Cholecalcifero l, 50 MCG (1999 UT) Capsule Take 4,000 Units by mouth. 07/25/20 Discontinue d(Duplicate Therapy) diphenhydrAMIN E (BENADRYL) 25 MG Capsule Take 25 mg by mouth. 08/07/20 Discontinue d(Med List Clean Up) ondansetron (ZOFRAN) 4 MG TabletIndicati ons:Classical Hodgkin lymphoma Take 2 Tablets by mouth every 8 hours as needed for Nausea - 1st line. 40 Tablet 3 5 07/25/20 Discontinue d(Reorder) pantoprazole (PROTONIX) 40 MG Tablet Delayed Response TAKE 1 TABLET BY MOUTH DAILY 30 Tablet 5 07/25/20 Discontinue d(Reorder) Cholecalcifero l (vitamin d) 50 MCG (1999) Capsule Take 1 Capsule by mouth daily for 30 days. 30 Capsule 5 08/07/20 Discontinue d(Med List Clean Up) pantoprazole (PROTONIX) 40 MG Tablet Delayed Response Take 1 Tablet by mouth daily. 30 Tablet 5 07/26/20 Discontinue d(Reorder) cephALEXin (KEFLEX) 500 MG CapsuleIndicat ions:Skin and Soft Tissue Infection Take 1 Capsule by mouth 2 times daily for 5 days. Indications: Infection of the Skin and/or Soft Tissue 10 Capsule 5 08/05/20 Active Problems Problem Noted Date Diagnosed Date Vitamin D deficiency 07/24/2025 Chemotherapy induced neutropenia 05/08/2025 Constipation 05/08/2025 Night sweats 04/03/2025 High risk medication use 04/03/2025 Classical Hodgkin lymphoma 04/02/2025 Encounters Date Type Department Care Team Description 08/09/2025 11:30 AM HOT STICK MAN Clinical Support [facility] [address] [address] NurseCelina Classical Hodgkin lymphoma (Primary Dx) 08/07/2025 8:45 AM HOT STICK MAN Office Visit [facility] [address] [address] Sully Avendaño, BAND INSTRUMENT MAKER, MMI TEACHER Classical Hodgkin lymphoma (Primary Dx); Chemotherapy induced neutropenia; Constipation, unspecified constipation type 08/07/2025 8:30 AM HOT STICK MAN Clinical Support [facility] [address] [address] Classical Hodgkin lymphoma (Primary Dx); Night sweats; High risk medication use 08/07/2025 Travel 07/31/2025 11:30 AM HOT STICK MAN Office Visit [facility] [address] [address] Missy Doe APRN, MMI TEACHER Skin infection (Primary Dx); Classical Hodgkin lymphoma 07/31/2025 Travel 07/31/2025 Telephone [facility] [address] [address] Nara Dumont MD 07/26/2025 12:00 PM CDT Clinical Support [facility] [address] [address] Nurse, Cc [facility] Classical Hodgkin lymphoma (Primary Dx) 07/26/2025 Refill [facility] [address] [address] Nara Dumont MD Medication Refill 07/25/2025 Results Follow-Up [facility] [address] [address] Trina Hunter, RN VITAMIN D, 25 HYDROXY TOTAL, MAGNESIUM (MG), LACTATE DEHYDROGENASE (LD), Additional followed-up results: 2 07/24/2025 8:45 AM CDT Office Visit [facility] [address] [phone] Nara Dumont MD Classical Hodgkin lymphoma (Primary Dx); Night sweats; Vitamin D deficiency 07/24/2025 8:30 AM CDT Clinical Support [facility] [address] [address] Classical Hodgkin lymphoma (Primary Dx); Vitamin D deficiency 07/24/2025 Travel 07/12/2025 1:45 PM CDT Clinical Support [facility] [address] [address] Classical Hodgkin lymphoma (Primary Dx) 07/10/2025 9:00 AM CDT Office Visit [facility] [address] [address] Nara Dumont MD Classical Hodgkin lymphoma (Primary Dx); Vitamin D deficiency 07/10/2025 8:45 AM CDT Clinical Support [facility] [address] [address] Classical Hodgkin lymphoma (Primary Dx); Night sweats; High risk medication use 07/10/2025 Travel 07/03/2025 Refill [facility] [address] [address] Nara Dumont MD Medication Refill 06/28/2025 12:45 PM CDT Clinical Support [facility] [address] [address] Nurse, Cc [facility] Classical Hodgkin lymphoma (Primary Dx) 06/26/2025 9:00 AM CDT Office Visit [facility] [address] [address] Nara Dumont MD Classical Hodgkin lymphoma (HCC) (Primary Dx); Chemotherapy induced neutropenia (HCC); Constipation, unspecified constipation type; Bone pain 06/26/2025 8:45 AM CDT Clinical Support [facility] [address] [address] Classical Hodgkin lymphoma (HCC) (Primary Dx); Night sweats; High risk medication use 06/26/2025 Travel 06/14/2025 11:15 AM CDT Clinical Support [facility] [address] [address] Nurse, Cc [facility] Classical Hodgkin lymphoma (HCC) (Primary Dx) 06/12/2025 9:00 AM CDT Office Visit [facility] [address] [address] Nara Dumont MD Classical Hodgkin lymphoma (HCC) (Primary Dx); Chemotherapy induced neutropenia (HCC); Constipation, unspecified constipation type 06/12/2025 8:45 AM CDT Clinical Support [facility] [address] [address] Classical Hodgkin lymphoma (HCC) (Primary Dx); Night sweats; High risk medication use 06/12/2025 Travel 05/29/2025 8:45 AM CDT Clinical Support [facility] [address] [address] Classical Hodgkin lymphoma (HCC) (Primary Dx) 05/29/2025 8:30 AM CDT Office Visit [facility] [address] [address] Nara Dumont MD Classical Hodgkin lymphoma (HCC) (Primary Dx); Chemotherapy induced neutropenia (HCC); Constipation, unspecified constipation type 05/29/2025 Travel 05/25/2025 9:00 AM CDT Ancillary Procedure [facility] [address] [address] Classical Hodgkin lymphoma (HCC); Chemotherapy induced neutropenia (HCC) 05/25/2025 8:45 AM CDT Lab [facility] [address] [address] [facility] Hodgkin lymphoma (HCC); Chemotherapy induced neutropenia (HCC) 05/25/2025 Travel 05/24/2025 MyChart RX Renewal [facility] [address] [address] Nara Dumont MD Medication Renewal Reviewed from Last 3 Months Immunizations Immunization Administration Dates Next Due TDAP Vaccine 09/05/2019,06/15/2017 Family History Medical History Relation Name Comments Obstructive Sleep Apnea Brother Congestive Heart Failure Father Hypertension Father Obstructive Sleep Apnea Father Thyroid Disease Mother gerd Mother Relation Name Status Comments Brother Father Mother Social History Tobacco Use Types Packs/Day Years Used Date Smoking Tobacco: Never Passive Smoke Exposure: Never Smokeless Tobacco: Never Tobacco Cessation:Counseling Given: Not Answered Alcohol Use Standard Drinks/Week Comments Never 0 (1 standard drink = 0.6 oz pur e alcohol) [facility] Utilities Answer Date Recorded In the past 12 months has th e electric, gas, oil, or water company threatened to shut off services in your home? No 02/18/2025 Social Connection and Isolation Panel Answer Date Recorded In a typical week, how many times do you talk on the phone with family, friends, or neighbors? More than three times a week 02/18/2025 How often do you get togethe r with friends or relatives? Once a week 02/18/2025 How often do you attend [facility] or [facility] services? More than 4 times per year 02/18/2025 Do you belong to any clubs o r organizations such as scientologist groups, unions, fraternal or athletic groups, or school groups? No 02/18/2025 How often do you attend meet ings of the clubs or organizations you belong to? Never 02/18/2025 Are you , , di vorced, , never , or living with a partner? 02/18/2025 AUDIT-C Answer Date Recorded Q1: How often do you have a drink containing alcohol? Never 02/18/2025 Q2: How many drinks containi ng alcohol do you have on a typical day when you are drinking? Patient does not drink Q3: How often do you have si x or more drinks on one occasion? Never 02/18/2025 Overall Financial Resource Strain (CARDIA) Answe r Date Recorded How hard is it for you to pa y for the very basics like food, housing, medical care, and heating? Not hard at all 02/18/2025 PHQ-2 Answer Date Recorded Total Score - Questions 1-9 0 01/26 [facility] [place] of Occupat ional Health - Occupational Stress Questionnaire Answer Date Recorded Do you feel stress - tense, restless, nervous, or anxious, or unable to sleep at night because your mind is troubled all the time - these days? Not at all 02/18/2025 Exercise Vital Sign Answer Date Recorde d On average, how many days pe r week do you engage in moderate to strenuous exercise (like a brisk walk)? 5 days 02/18/2025 On average, how many minutes do you engage in exercise at this level? 60 min 02/18/2025 Hunger Vital Sign Answer Date Recorded Within the past 12 months, y ou worried that your food would run out before you got the money to buy more. Never true 02/19/20 Within the past 12 months, t he food you bought just didn't last and you didn't have money to get more. Never true 02/18/2025 PRAPARE - Transportation Answer Date Re corded In the past 12 months, has l ack of transportation kept you from medical appointments or from getting medications? No 01/26 In the past 12 months, has l ack of transportation kept you from meetings, work, or from getting things needed for daily living? No 02/18/2025 Housing Stability Vital Sign Answer Jun e Recorded In the last 12 months, was t here a time when you were not able to pay the mortgage or rent on time? No 02/18/2025 Number of Times Moved in the Last Year Not on fi le 02/18/2025 At any time in the past 12 m [facility], were you homeless or living in a half-way (including now)? No 02/18/2025 Comments No Sex and Gender Information Value Date Recorded Sex Assigned at Female 02/18/2025 5:00 PM CDT Legal Sex Female 4:59 PM CDT Gender Identity Female 03/29/2025 1:49 PM CDT Sexual Orientation Not on file Last Filed Vital Signs Vital Sign Reading Time Taken Comments Blood Pressure 122/76 08/07/2025 8:44 AM HOT STICK MAN Pulse 72 08/07/2025 8:44 AM HOT STICK MAN Temperature 36.7 C (98 F) 08/07/2025 8:44 AM HOT STICK MAN Respiratory Rate 16 08/07/2025 8:44 AM HOT STICK MAN Oxygen Saturation 98% 08/07/2025 8:44 AM HOT STICK MAN Inhaled Oxygen Concentration - - Weight 75.7 kg (166 lb 12.8 oz) 08/07/2025 8:44 AM HOT STICK MAN Height 165.1 cm (5' 5) 08/07/2025 8:44 AM HOT STICK MAN Body Mass Index 27.76 08/07/2025 8:44 AM HOT STICK MAN Plan of Treatment Upcoming Encounters Date Type Department Care Team (Late st Contact Info) Description 08/21/2025 9:00 AM HOT STICK MAN Clinical Support [facility] [address] [id number] 08/21/2025 9:15 AM HOT STICK MAN Office Visit [facility] [place] [address] [place] [address] Nara Dumont MD [address] [place] [address] Health Maintenance Due Date Last Done Comments Varicella Immunization (1 of 2 - 13+ 2-dose series) 2000 Hepatitis B Immunization (1 of 3 - 19+ 3-dose series) 2006 Pneumococcal Immunization Combined (1 of 2 - PCV) 2006 Human Papillomavirus (HPV) Immunization (1 - Risk 3-dose SCDM series) 2014 HPV/Cotest 2017 SARS-COV-2 Immunization (3 - Pfizer risk series) 11/08/2020 10/11/2020, 09/19/2020 Influenza Immunization (#1) 2025 Cervical Cancer Screening (CCS) 04/02/2028 Pap Smear 04/02/2028 04/02/2025, 04/02/2025 Td Immunization Every 10 Yea rs (Adults With 1 Tdap) 09/05/2029 09/05/2019, 06/15/2017 Respiratory Syncytial Virus (RSV) Immunization (Adult) (1 - 1-dose 75+ series) 2062 Hepatitis C Virus (HCV) Screening Completed 03/01/2025 Meningococcal Immunization (ACWY) Aged Out No longer eligible b ased on patient's age to complete this topic Rotavirus Immunization Aged Out No lo nger eligible based on patient's age to complete this topic Procedures Procedure Name Priority Date/Time Associated Diagnosis Comments COMPLETE BLOOD COUNT (CBC) WITH DIFF Routine 08/07/2025 8:32 AM HOT STICK MAN Classical Hodgkin lymphoma Night sweats High risk medication use CMP (COMPREHENSIVE METABOLIC PANEL) Routine 08/07/2025 8:32 AM HOT STICK MAN Classical Hodgkin lymphoma Night sweats High risk medication use MAGNESIUM (MG) Routine 08/07/2025 8:32 AM HOT STICK MAN Classical Hodgkin lymphoma Night sweats High risk medication use LACTATE DEHYDROGENASE (LD) Routine 08/07/2025 8:32 AM HOT STICK MAN Classical Hodgkin lymphoma Night sweats High risk medication use COMPLETE BLOOD COUNT (CBC) WITH DIFF Routine 07/24/2025 8:29 AM CDT Classical Hodgkin lymphoma Vitamin D deficiency CMP (COMPREHENSIVE METABOLIC PANEL) Routine 07/24/2025 8:29 AM CDT Classical Hodgkin lymphoma Vitamin D deficiency LACTATE DEHYDROGENASE (LD) Routine 07/24/2025 8:29 AM CDT Classical Hodgkin lymphoma Vitamin D deficiency MAGNESIUM (MG) Routine 07/24/2025 8:29 AM CDT Classical Hodgkin lymphoma Vitamin D deficiency VITAMIN D, 25 HYDROXY TOTAL Routine 07/24/2025 8:29 AM CDT Classical Hodgkin lymphoma Vitamin D deficiency COMPLETE BLOOD COUNT (CBC) WITH DIFF Routine 07/10/2025 8:29 AM CDT Classical Hodgkin lymphoma Night sweats High risk medication use CMP (COMPREHENSIVE METABOLIC PANEL) Routine 07/10/2025 8:29 AM CDT Classical Hodgkin lymphoma Night sweats High risk medication use MAGNESIUM (MG) Routine 07/10/2025 8:29 AM CDT Classical Hodgkin lymphoma Night sweats High risk medication use LACTATE DEHYDROGENASE (LD) Routine 07/10/2025 8:29 AM CDT Classical Hodgkin lymphoma Night sweats High risk medication use COMPLETE BLOOD COUNT (CBC) WITH DIFF Routine 06/26/2025 8:22 AM CDT Classical Hodgkin lymphoma (HCC) Night sweats High risk medication use CMP (COMPREHENSIVE METABOLIC PANEL) Routine 06/26/2025 8:22 AM CDT Classical Hodgkin lymphoma (HCC) Night sweats High risk medication use MAGNESIUM (MG) Routine 06/26/2025 8:22 AM CDT Classical Hodgkin lymphoma (HCC) Night sweats High risk medication use LACTATE DEHYDROGENASE (LD) Routine 06/26/2025 8:22 AM CDT Classical Hodgkin lymphoma (HCC) Night sweats High risk medication use COMPLETE BLOOD COUNT (CBC) WITH DIFF Routine 06/12/2025 8:24 AM CDT Classical Hodgkin lymphoma (HCC) Night sweats High risk medication use CMP (COMPREHENSIVE METABOLIC PANEL) Routine 06/12/2025 8:24 AM CDT Classical Hodgkin lymphoma (HCC) Night sweats High risk medication use MAGNESIUM (MG) Routine 06/12/2025 8:24 AM CDT Classical Hodgkin lymphoma (HCC) Night sweats High risk medication use LACTATE DEHYDROGENASE (LD) Routine 06/12/2025 8:24 AM CDT Classical Hodgkin lymphoma (HCC) Night sweats High risk medication use PET CT TUMOR IMAGING SKULL BASE TO MID THIGH Routine 05/25/2025 10:31 AM CDT Classical Hodgkin lymphoma (HCC) Chemotherapy induced neutropenia (HCC) COMPLETE BLOOD COUNT (CBC) WITH DIFF Routine 05/25/2025 8:24 AM CDT Classical Hodgkin lymphoma (HCC) Chemotherapy induced neutropenia (HCC) CMP (COMPREHENSIVE METABOLIC PANEL) Routine 05/25/2025 8:24 AM CDT Classical Hodgkin lymphoma (HCC) Chemotherapy induced neutropenia (HCC) LACTATE DEHYDROGENASE (LD) Routine 05/25/2025 8:24 AM CDT Classical Hodgkin lymphoma (HCC) Chemotherapy induced neutropenia (HCC) MAGNESIUM (MG) Routine 05/25/2025 8:24 AM CDT Classical Hodgkin lymphoma (HCC) Chemotherapy induced neutropenia (HCC) HEPATITIS C ANTIBODY Routine 03/01/2025 10:38 AM CDT Adenopathy Night sweats Leukocytosis, unspecified type from Last 3 Months or Most Recently Relevant to Health Maintenance Results * MAGNESIUM (MG) (08/07/2025 8:32 AM HOT STICK MAN) Only the most recent of6 resultswithin the time period is included. Magnesium 1.9 1.9 - 2.7 mg/dL [facility] Blood 08/07/2025 8:32 AM HOT STICK MAN Narrative [facility] - 08/07/2025 9:37 AM HOT STICK MAN Release to patient->Immediate us Nara Dumont MD CHEMISTRY ORDERABLES Final Resul t Performing Organization Address City/[facility]/ZIP Co de Phone Number [facility] [place] [address], * (ABNORMAL) LACTATE DEHYDROGENASE (LD) (08/07/2025 8:32 AM HOT STICK MAN) Only the most recent of6 resultswithin the time period is included. LDH 113(L) 140 - 271 U/L [facility] Blood 08/07/2025 8:32 AM HOT STICK MAN [facility] - 08/07/2025 9:37 AM HOT STICK MAN Release to patient->Immediate us Nara Dumont MD CHEMISTRY ORDERABLES Final Resul t Performing Organization Address City/[facility]/ZIP Co de Phone Number [facility] [place] [address], [place] [phone] * (ABNORMAL) CMP (COMPREHENSIVE METABOLIC PANEL) (08/07/2025 8:32 AM HOT STICK MAN) Only the most recent of6 resultswithin the time period is included. Glucose 96 70 - 105 mg/dL [facility] Blood Urea Nitrogen 12 7 - 25 mg/dL [facility] Creatinine 0.5(L) 0.6 - 1.2 mg/dL [facility] Sodium 140 136 - 145 mEq/L [facility] Potassium 3.6 3.5 - 5.1 mEq/L [facility] Chloride 106 98 - 107 mEq/L [facility] Bicarbonate 26 21 - 31 mEq/L [facility] Total Bilirubin 0.3 0.3 - 1.0 mg/dL [facility] Alk. Phosphatase 83 34 - 104 U/L [facility] Aspartate Aminotransferase 23 13 - 39 U/L [facility] Alanine Aminotransferase 35 7 - 52 U/L [facility] Total Protein 6.9 6.4 - 8.9 g/dL [facility] Albumin 4.1 3.5 - 5.7 g/dL [facility] Calcium 9.1 8.6 - 10.3 mg/dL [facility] Anion Gap 11.6 7.0 - 15.0 mEq/L [facility] Globulin 2.8 2.0 - 3.5 g/dL [facility] EGFR 123 >60 ml/min/1. 73m2 [facility] Comment: This eGFR is calculated using 2020 CKD-EPI Creatinine equation without race modifier based on the NKF-ASN task force recommendations Equation: eYNO=052*min(SCr/k,1)a*max(SCr/k,1)-1.200*0.9938Age*1.012 (if female), where SCr is serum creatinine, k is 0.7 for females and 0.9 for males, and a is -0.241 for females and -0.302 for males Blood 08/07/2025 8:32 AM HOT STICK MAN Narrative [facility] - 08/07/2025 9:37 AM HOT STICK MAN Release to patient->Immediate IS THE PATIENT REQUIRED TO BE FASTING FOR 8 HOURS?->No us Nara Dumont MD CHEMISTRY ORDERABLES Final Resul t [facility] [place] [address], * (ABNORMAL) COMPLETE BLOOD COUNT (CBC) WITH DIFF (08/07/2025 8:32 AM HOT STICK MAN) Only the most recent of6 resultswithin the time period is included. WBC 2.2(L) 4.0 - 10.0 10*3/uL [facility] HGB 10.9(L) 11.2 - 15.7 g/dL [facility] HCT 34.0(L) 34.1 - 44.9 % [facility] PLT 229 163 - 369 10*3/uL [facility] MPV 9.5 9.4 - 12.4 fL [facility] RBC 3.53(L) 3.93 - 5.22 10*6/uL [facility] MCV 96(H) 79 - 95 fL [facility] MCH 30.9 25.6 - 32.2 pg [facility] MCHC 32.1(L) 32.2 - 36.5 g/dL [facility] RDW 15.5(H) 11.6 - 14.4 % [facility] Absolute Neutrophil Count 222 cells/uL [facility] Absolute Seg Count 222(L) 1,440 - 6,600 cells/uL [facility] Absolute Lymph Count 1,088 760 - 4,000 cells/uL [facility] Absolute Runnels Count 555 160 - 1,200 cells/uL [facility] Absolute Eos Count 289 0 - 300 cells/uL [facility] Absolute Baso Count 67 0 - 100 cells/uL [facility] Segmented Neutrophils 10(L) 36 - 66 % [facility] Lymphocytes 49(H) 19 - 40 % [facility] Monocytes 25(H) 4 - 12 % [facility] Eosinophils 13(H) 0 - 3 % [facility] Basophils 3(H) 0 - 1 % [facility] WBC Estimate Low [facility] Platelet Estimate Normal [facility] RBC Morphology Abnormal [facility] Macrocytosis 1+ [facility] Anisocytosis 1+ [facility] Large Platelets Present [facility] Blood 08/07/2025 8:32 AM HOT STICK MAN Narrative [facility] - 08/07/2025 10:10 AM HOT STICK MAN Release to patient->Immediate Nara Dumont MD HEMATOLOGY ORDERABLES Final Resu lt Performing Organization Address [facility] de Phone Number [facility] [place] [address], * (ABNORMAL) VITAMIN D, 25 HYDROXY TOTAL (07/24/2025 8:29 AM CDT) 25() Vitamin D, Total 25.5(L) 30.0 - 100.0 ng/mL [facility] Comment: The Clinical Guidelines Subcommittee of the Endocrine Society Task Force established the guidelines below for recommended serum 25(OH) vitamin D levels. Other clinical reference citations may show different values. Deficient <20 Insufficient 20 to <30 Sufficient 30 to 100 Upper Safety Limit >100 Blood 07/24/2025 8:29 AM CDT Narrative [facility] - 07/24/2025 2:20 PM CDT Release to patient->Immediate Nara Dumont MD CHEMISTRY ORDERABLES Final Resul t Performing Organization Address [facility] de Phone Number [facility] [place] [address], * PET CT TUMOR IMAGING SKULL BASE TO MID THIGH (05/25/2025 10:31 AM CDT) Anatomical Region Laterality Modality BODY N/A Computed Tomogra phy Narrative 05/25/2025 10:46 AM CDT EXAMINATION: PET CT TUMOR IMAGING SKULL BASE TO MID THIGH 05/25/2025 INDICATIONS: Other Hodgkin lymphoma, unspecified site. Lymphoma. Hodgkin's lymphoma with multifocal involvement. Patient is status post chemotherapy. Subsequent treatment strategy. COMPARISON: CT PET 03/19/2025 TECHNIQUE: Following the administration of 9.82 millicuries F 18 FDG, CT PET images were performed from the skull base through the mid thighs. Fused CT PET images were reviewed at the workstation. Glucose 94. A dose lowering technique was used for this procedure, which may include, but is not limited to, dose reduction technique(s), automated exposure control technique(s), use of iterative reconstruction technique(s), and ALARA (as low as reasonably achievable) or ALARA/IMAGE Gently technique(s). FINDINGS: Head and neck: No mass or abnormal activity is identified within the brain parenchyma. Tonsillar activity is symmetric and likely benign. The previously seen hypermetabolic adenopathy within the neck bilaterally has dramatically improved. There is some persistent upper normal-sized lymph nodes most pronounced within the posterior triangles which demonstrate minimal activity. No new hypermetabolic adenopathy within the neck. Cardiovascular: Thoracic aorta is intact without evidence of aneurysm. Heart size is upper limits of normal. No significant coronary artery calcification. Lungs: Small nodular density within the left upper lobe is not hypermetabolic and is nonspecific. Recommend attention on follow up. Very mild atelectatic changes are seen. No other suspicious pulmonary nodules. Hepatobiliary: The liver is homogeneous in attenuation. No discrete liver lesions are appreciated. No intrahepatic biliary ductal dilatation is seen. Gallbladder is unremarkable. The pancreas is within normal limits. Lymphatics: The spleen is nonenlarged. Splenule is present. There is persistent lymphadenopathy within the left supraclavicular region extending into the anterior and superior mediastinum. Additional abnormal soft tissue and mildly enlarged lymph nodes extend into the paratracheal region as well as the pre and subcarinal region. There is very mild activity present on today's study significantly improved when compared to the previous. The maximum SUV is 2.67. The SUV of the blood pool is approximately 2.72. This is less than the maximum SUV of the liver of 3.67. No other hypermetabolic adenopathy is appreciated. : Adrenal glands are normal configuration. The kidneys demonstrate symmetric enhancement without significant collecting system dilatation. No solid mass identified. The uterus is present. Right adnexal cyst likely functional given patient's age. The bladder is incompletely distended but otherwise unremarkable. GI: Bowel-gas pattern is nonobstructive. Stool is seen throughout the colon. No other focal bowel abnormalities appreciated. Musculoskeletal: No discrete osseous lesions are appreciated. IMPRESSION 1. Significant interval improvement in hypermetabolic adenopathy throughout the neck as well as the mediastinum, gordon and left axilla consistent with regression of patient's lymphoma. There is some persistent borderline sized lymph nodes within the neck and supraclavicular region. Persistent enlarged lymph nodes are seen within the anterior and superior mediastinum. These demonstrate low-level activity similar to blood pool and less than liver. Findings are most consistent with a Deauville 2. 2. Tiny pulmonary nodule left upper lobe is not hypermetabolic and is nonspecific. Follow-up recommended to ensure stability. 3. Symmetric activity within the tonsils most likely physiologic. 4. Right adnexal cyst most likely functional given patient's age. Electronically signed by: VALERI SANTACRUZ MD, Staff Radiologist Date of Signature: 05/25/2025 10:46:36 Procedure Note Valeri Santacruz MD - 05/25/2025 EXAMINATION: PET CT TUMOR IMAGING SKULL BASE TO MID THIGH 05/25/2025 INDICATIONS: Other Hodgkin lymphoma, unspecified site. Lymphoma. Hodgkin's lymphomawith multifocal involvement. Patient is status post chemotherapy.Subsequent treatment strategy. COMPARISON: CT PET 03/19/2025 TECHNIQUE: Following the administration of 9.82 millicuries F 18 FDG, CT PET imageswere performed from the skull base through the mid thighs. Fused CT PETimages were reviewed at the workstation. Glucose 94. A dose lowering technique was used for this procedure, which may include,but is not limited to, dose reduction technique(s), automated exposurecontrol technique(s), use of iterative reconstruction technique(s), andALARA (as low as reasonably achievable) or ALARA/IMAGE Gentlytechnique(s). FINDINGS: Head and neck: No mass or abnormal activity is identified within the brainparenchyma. Tonsillar activity is symmetric and likely benign. Thepreviously seen hypermetabolic adenopathy within the neck bilaterally hasdramatically improved. There is some persistent upper normal-sized lymphnodes most pronounced within the posterior triangles which demonstrateminimal activity. No new hypermetabolic adenopathy within the neck. Cardiovascular: Thoracic aorta is intact without evidence of aneurysm.Heart size is upper limits of normal. No significant coronary arterycalcification. Lungs: Small nodular density within the left upper lobe is nothypermetabolic and is nonspecific. Recommend attention on follow up.Very mild atelectatic changes are seen. No other suspicious pulmonarynodules. Hepatobiliary: The liver is homogeneous in attenuation. No discrete liverlesions are appreciated. No intrahepatic biliary ductal dilatation isseen. Gallbladder is unremarkable. The pancreas is within normallimits. Lymphatics: The spleen is nonenlarged. Splenule is present. There ispersistent lymphadenopathy within the left supraclavicular regionextending into the anterior and superior mediastinum. Additional abnormalsoft tissue and mildly enlarged lymph nodes extend into the paratrachealregion as well as the pre and subcarinal region. There is very mildactivity present on today's study significantly improved when compared tothe previous. The maximum SUV is 2.67. The SUV of the blood pool isapproximately 2.72. This is less than the maximum SUV of the liver of3.67. No other hypermetabolic adenopathy is appreciated. : Adrenal glands are normal configuration. The kidneys demonstratesymmetric enhancement without significant collecting system dilatation.No solid mass identified. The uterus is present. Right adnexal cystlikely functional given patient's age. The bladder is incompletelydistended but otherwise unremarkable. GI: Bowel-gas pattern is nonobstructive. Stool is seen throughout thecolon. No other focal bowel abnormalities appreciated. Musculoskeletal: No discrete osseous lesions are appreciated. IMPRESSION 1. Significant interval improvement in hypermetabolic adenopathythroughout the neck as well as the mediastinum, gordon and left axillaconsistent with regression of patient's lymphoma. There is somepersistent borderline sized lymph nodes within the neck andsupraclavicular region. Persistent enlarged lymph nodes are seen withinthe anterior and superior mediastinum. These demonstrate low-levelactivity similar to blood pool and less than liver. Findings are mostconsistent with a Deauville 2. 2. Tiny pulmonary nodule left upper lobe is not hypermetabolic and isnonspecific. Follow-up recommended to ensure stability. 3. Symmetric activity within the tonsils most likely physiologic. 4. Right adnexal cyst most likely functional given patient's age. Electronically signed by: VALERI SANTACRUZ MD, Staff Radiologist Date of Signature: 05/25/2025 10:46:36 us Nara Dumont MD IMG PET Final Result * HEPATITIS C ANTIBODY (03/01/2025 10:38 AM CDT) HEPATITIS C VIRUS AB SIGNAL CUTOFF NON REACTIVE NON REACTIVE [facility] HEPATITIS C VIRUS AB COMMENT [facility] Comment: NOT INFECTED WITH HCV UNLESS EARLY OR ACUTE INFECTION IS SUSPECTED (WHICH MAY BE DELAYED IN AN IMMUNOCOMPROMISED INDIVIDUAL), OR OTHER EVIDENCE EXISTS TO INDICATE HCV INFECTION. Blood 03/01/2025 10:3 8 AM CDT Narrative [facility] - 03/02/2025 6:07 AM CDT TESTING PERFORMED AT: [] [facility], [address] [place] [address], [place], [id number], PHONE: [phone], DIE FINISHER: HARESH SCHMITZ, PHD Release to patient->Immediate us Nara Dumont MD CHEMISTRY ORDERABLES Final Resul t [facility] [address] [place] [address], from Last 3 Months or Most Recently Relevant to Health Maintenance Insurance [employer] Care Teams Nurse Advocate Relationship Specialty Start Date End Date Provider, None [place] PCP - General 02/18/25 Nara Dumont MD [address] [place] [id number] Consulting Physician Oncology 02/28/25
--- OUTSIDE RECORDS SUMMARY | 2025-08-17 18:41 | XMS_ITS | Clinical Summary ---
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 Active albuterol sulfate HFA 108 (90 Base) MCG/ACT inhalerIndicati ons:Wheezing Inhale 2 puffs into the lungs every 6 (six) hours as needed for Wheezing. 8 g Active Vitamin D3 125 mcg Tab Take 100 mcg by mouth daily. Active acetaminophen (TYLENOL) 500 MG tablet Take 1 tablet (500 mg total) by mouth every 8 (eight) hours as needed for Pain. Active diphenhydrAMINE (BENADRYL) 50 MG tablet Take 0.5 tablets (25 mg total) by mouth nightly as needed for Sleep. Active ondansetron (ZOFRAN) 4 MG tablet Take 2 tablets (8 mg total) by mouth every 8 (eight) hours as needed for Nausea. 1st line Active pantoprazole EC (PROTONIX) 40 MG tablet Take 1 tablet (40 mg total) by mouth daily as needed (post-chemo). Takes once daily for 5 days following chemotherapy. Active polyethylene glycol (GLYCOLAX) packet Take 240 mLs (17 g total) by mouth daily as needed for Constipation. Dissolve powder in 240 mL water Active prochlorperazin e (COMPAZINE) 10 MG tablet Take 1 tablet (10 mg total) by mouth every 6 (six) hours as needed (nausea). 2nd line Active Active Problems No known active problems Encounters Date Type Department Care Team Description 05/22/2025 7:17 PM CDT - 05/22/2025 11:33 PM CDT Emergency [facility] [place] [address] Crescencio Ziegler MD Dale, Maurice D, Fever Discharge Disposition: Home or Self Care (Routine Discharge) 05/22/2025 Travel from Last 3 Months Immunizations Immunization Administration Dates Next Due Tdap (Generic) 09/05/2019,06/15/2017 Family History Medical History Relation Comments No Known Problems Brother Heart Disease Father Hypertension Father delayed emergence Father Asthma Maternal Grandmother delayed emergence Maternal Grandmother Thyroid Disease Mother No Known [...] Date Recorded Patient Health Questionnaire-2 Score 0 02/27/2025 Comments No Sex and Gender Information Value Date Recorded Sex Assigned at Female 10/23/2024 9:16 AM MANAGER COUNTRY Legal Sex Female 3:43 PM MANAGER COUNTRY Gender Identity Female 10/23/2024 9:16 AM MANAGER COUNTRY Sexual Orientation Straight 10/23/2024 9: 16 AM MANAGER COUNTRY Occupation Industry Job Start Date Job End Date 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 Not on file Not on file Not on file Last Filed Vital Signs Vital Sign Reading Time Taken Comments Blood Pressure 93/59 05/22/2025 10:15 PM CDT Pulse 106 05/22/2025 7:04 PM CDT Temperature 36.7 C (98 F) 05/22/2025 10:56 PM CDT Respiratory Rate 19 05/22/2025 7:04 PM CDT Oxygen Saturation 99% 05/22/2025 10:15 PM CDT Inhaled Oxygen Concentration - - Weight 71.1 kg (156 lb 12 oz) 05/22/2025 7:04 PM CDT Height 166.4 cm (5' 5.5) 05/22/2025 7:04 PM CDT Body Mass Index 25.69 05/22/2025 7:04 PM CDT Plan of Treatment Upcoming Encounters Date Type Department Care Team (Late st Contact Info) Description 10/30/2025 9:10 AM MANAGER COUNTRY Office Visit [facility] Family [facility] - [place] [address] [place], [place] [id number] Annalisa Lo MD [address] [place], [place] [phone] Health Maintenance Due Date Last Done Comments Hepatitis C 2005 Hepatitis B Vaccines (1 of 3 - 19+ 3-dose series) 2006 Pneumococcal Vaccine: Pediatrics (0 to 5 Years) and At-Risk Patients (6 to 49 Years) (1 of 2 - PCV) 2006 HPV Vaccines (1 - 3-dose SCD M series) 2014 COVID-19 Vaccine (3 - 2024-2 6 season) 2025 10/11/2020, 09/19/2020 Influenza Adult (#1) 2025 Annual Physical 10/23/2025 10/23/2024 Cervical Cancer Screening Pa p Smear (Age 30 to 64) Every 3 Years 04/02/2028 04/02/2025, 04/02/2025, 10/28/2021 DTaP, Tdap and Td Vaccines ( 3 - Td or Tdap) 09/05/2029 09/05/2019, 06/15/2017 Cervical Cancer Screening Pa p with HPV Testing (Age 30 to 64) Every 5 Years 04/02/2030 04/02/2025 Cervical Cancer Screening wi th HPV 04/02/2030 PHQ-2 (Physician [place]) Completed 02/27/2025 Hepatitis A Vaccines Aged Out No long er eligible based [...] on patient's age to complete this topic Medical Devices Implanted Type Area C4 Planner Device Identifier Shelf Expiration Date Model / Serial / Lot Catheter Power Port Mri Implanted 8fr - [id number] Implanted:Qty : 1 on 03/23/2025 by Austen Vidal DO at [facility] Port Right: Neck [employer] [id number] 08/26/2026 [id number] / / [id number] Procedures Procedure Name Priority Date/Time Associated Diagnosis Comments HC BLOOD CULTURE STAT 05/22/2025 8:25 PM CDT HC OPTICAL STREP STAT 05/22/2025 8:20 PM CDT LACTIC ACID W REFLEX (SEPSIS) STAT 05/22/2025 8:20 PM CDT HC COMPREHENSIVE METABOLIC PANEL STAT 05/22/2025 8:20 PM CDT HC CBC AUTO W/AUTO DIFF STAT 05/22/2025 8:20 PM CDT HC QL INFLUENZA A/B STAT 05/22/2025 8 :19 PM CDT CORONAVIRUS (COVID 19) STAT 8:19 PM CDT HC URINALYSIS AUTO W/O MICRO STAT 05/22/2025 8:19 PM CDT HC BLOOD CULTURE STAT 05/22/2025 8:18 PM CDT XR CHEST PORTABLE STAT 05/22/2025 7:3 7 PM CDT HC HPV AMP Routine 04/02/2025 12:00 PM CDT CYTOPATH CERV/VAG THIN LAYER Routine 04/02/2025 12:00 AM CDT Cervical cancer screening from Last 3 Months or Most Recently Relevant to Health Maintenance Results * CULTURE, BACTERIA, BLOOD (05/22/2025 8:25 PM CDT) Only the most recent of2 resultswithin the time period is included. SPEC DESCRIPTION BLOOD 05/22/2025 7:03 PM CDT [facility] SPECIAL REQUESTS NO SPECIAL REQUEST 05/22/2025 7:03 PM CDT [facility] CULTURE RESULT NO GROWTH 5 DAYS 05/27/2025 11:36 PM CDT [facility] BLOOD SPECIMEN OBTAINED FOR BLOOD CULTURE / Unknown 05/22/2025 8:25 PM CDT 05/22/2025 8:47 PM CDT [facility] MICROBIOLOGY - GENERAL ORDERA BLES Final Result Performing Organization Address City/[facility]/ZIP Co de Phone Number [facility] [address] [place] [id number], [place] [phone] * LACTIC ACID W REFLEX (SEPSIS) (05/22/2025 8:20 PM CDT) LACTIC ACID VENOUS 1.2 0.4 - 2.0 MMOL/L 05/22/2025 9:02 PM CDT [facility] 05/22/2025 8:20 PM CDT [facility] Final Result [facility] [address] [place] [address], [place] [phone] * STREP A RAPID (05/22/2025 8:20 PM CDT) SPECIMEN TYPE THROAT 05/22/2025 8:35 PM CDT [facility] RAPID STREP TEST NEGATIVE NEGATIVE 05/22/2025 9:11 PM CDT [facility] STRUCTURE OF ANTERIOR REGION OF NECK / Unknown 05/22/2025 8:20 PM CDT us [facility] MICROBIOLOGY - GENERAL ORDERA BLES Final Result [facility] [address] [place] [address], [place] [phone] * (ABNORMAL) COMPREHENSIVE METABOLIC PANEL (05/22/2025 8:20 PM CDT) GLUCOSE 90 70 - 99 MG/DL 05/22/2025 9:02 PM CDT [facility] BUN 9 7 - 18 MG/DL 05/22/2025 9:02 PM CDT [facility] CREATININE S/P/B 0.49(L) 0.55 - 1.02 MG/DL 05/22/2025 9:02 PM CDT [facility] SODIUM S/P/B 139 136 - 145 MMOL/L 05/22/2025 9:02 PM CDT [facility] POTASSIUM S/P/B 3.5 3.5 - 5.1 MMOL/L 05/22/2025 9:02 PM CDT [facility] CHLORIDE S/P/B 107 97 - 115 MMOL/L 05/22/2025 9:02 PM CDT [facility] CO2 26.7 21 - 32 MMOL/L 05/22/2025 9:02 PM CDT [facility] CALCIUM S/P/B 9.1 8.5 - 10.1 MG/DL 05/22/2025 9:02 PM CDT [facility] BILIRUBIN TOTAL S/P/B 0.2 0.2 - 1.2 MG/DL 05/22/2025 9:02 PM CDT [facility] Comment: THIS ASSAY IS NOT RECOMMENDED FOR PATIENTS UNDERGOING TREATMENT WITH ELTROMBOPAG DUE TO THE POTENTIAL FOR FALSELY ELEVATED RESULTS. TOTAL PROTEIN S/P/B 7.1 6.4 - 8.2 G/DL 05/22/2025 9:02 PM CDT [facility] ALBUMIN S/P/B 3.5 3.4 - 5.0 G/DL 05/22/2025 9:02 PM CDT [facility] AST 18 15 - 37 U/L 05/22/2025 9:02 PM T [facility] ALT 42 14 - 55 U/L 05/22/2025 9:02 PM T [facility] ALKALINE PHOSPHATASE S/P/B 69 50 - 136 U/L 05/22/2025 9:02 PM T [facility] ANION GAP 5.3 2 - 10 MMOL/L 05/22/2025 9:02 PM T [facility] BUN CREATININE RATIO 18.5 6 - 26 05/22/2025 9:02 PM T [facility] A/G RATIO 1.0 1.0 - 2.0 RATIO 05/22/2025 9:02 PM [facility] GFR ESTIMATE >90 >90 ML/MIN/1.7 3 M2 05/22/2025 9:02 PM T [facility] Comment: NOTE: eGFR is not calculated for patients <18 years of age or gender unknown. This is an estimated GFR calculation using the new CKD EPI creatinine equation without race and so does not require a correction factor for race. This estimated GFR should not be used for calculating drug doses. 05/22/2025 8:20 PM CDT us [facility] Final Result [facility] [address] [place] [address], * (ABNORMAL) CBC W/DIFF AUTOMATED (05/22/2025 8:20 PM CDT) [facility] WBC 3.07(L) 4.5 - 11.0 x10'3/uL 05/22/2025 8:45 PM CDT [facility] RBC 3.90(L) 4.20 - 5.40 x10'6/uL 05/22/2025 8:45 PM CDT [facility] HGB 11.3(L) 12.0 - 16.0 G/DL 05/22/2025 8:45 PM CDT [facility] HCT 34.4(L) 38.0 - 48.0 % 05/22/2025 8:45 PM CDT [facility] MCV 88.2 81.0 - 99.0 FL 05/22/2025 8:45 PM CDT [facility] MCH 29.0 27.0 - 31.0 PG 05/22/2025 8:45 PM CDT [facility] MCHC 32.8 32.0 - 36.0 G/DL 05/22/2025 8:45 PM CDT [facility] RDW 16.3(H) 11.5 - 14.5 % 05/22/2025 8:45 PM CDT [facility] PLT 215 130 - 400 x10'3/uL 05/22/2025 8:45 PM CDT [facility] MPV 11.2 9.3 - 12.2 FL 05/22/2025 8:45 PM CDT [facility] DIFFERENTIAL TYPE MANUAL DIFFERENTIAL 05/22/2025 9:12 PM CDT [facility] SEG NEUTROPHILS 45 % 9:12 PM CDT [facility] LYMPHOCYTES 47 % 05/22/2025 9:12 PM CDT [facility] MONOCYTES 3 % 05/22/2025 9:12 PM CDT [facility] EOSINOPHILS 3 % 05/22/2025 9:12 PM CDT [facility] BASOPHILS 2 % 05/22/2025 9:12 PM CDT [facility] ABS. NEUTROPHILS 1.38(L) 1.80 - 7.70 x10'3/uL 05/22/2025 9:12 PM CDT [facility] ABS. LYMPHOCYTES 1.44 1.00 - 4.80 x10'3/uL 05/22/2025 9:12 PM CDT [facility] ABS. MONOCYTES 0.09(L) 0.24 - 0.86 x10'3/uL 05/22/2025 9:12 PM CDT [facility] ABS. EOSINOPHILS 0.09 0.04 - 0.36 x10'3/uL 05/22/2025 9:12 PM CDT [facility] ABS. BASOPHILS 0.06 0.01 - 0.08 x10'3/uL 05/22/2025 9:12 PM CDT [facility] RBC MORPHOLOGY RBC MORPHOLOGY APPEARS NORMAL. SLIDE REVIEWED. 05/22/2025 9:12 PM CDT [facility] PLT EST. ADEQUATE 05/22/2025 9:12 PM CDT [facility] 05/22/2025 8:20 PM CDT us [facility] Final Result [facility] [address] [place] [address], [place] [phone] * CORONAVIRUS (COVID 19) (05/22/2025 8:19 PM CDT) Pathologist [facility] CORONAVIRUS SARS COV 2 RNA NEGATIVE NEGATIVE 05/22/2025 9:10 PM CDT [facility] Comment: NEGATIVE RESULTS DO NOT RULE OUT COVID 19 AND SHOULD NOT BE USED THE SOLE BASIS FOR TREATMENT OR PATIENT MANAGEMENT DECISIONS, INCLUDING INFECTION CONTROL DECISIONS. NEGATIVE RESULTS SHOULD BE CONSIDERED IN THE CONTEXT OF A PATIENT'S RECENT EXPOSURES, HISTORY AND THE PRESENCE OF CLINICAL SIGNS AND SYMPTOMS CONSISTENT WITH COVID 19. THE ID NOW COVID-19 2.0 TEST HAS BEEN AUTHORIZED BY THE FDA UNDER EAU FOR USE BY AUTHORIZED LABORATORIES. PERFORMED BY NUCLEIC ACID AMPLIFICATION FOR MOLECULAR QUALITATIVE DETECTION OF SARS-COV-2. SPECIMEN TYPE NASAL 05/22/2025 8:35 PM CDT [facility] NASAL STRUCTURE / Unknown 05/22/2025 8:19 PM CDT us [facility] MICROBIOLOGY - GENERAL ORDERA BLES Final Result [facility] [address] [place] [address], [place] [phone] * INFLUENZA A & B (05/22/2025 8:19 PM CDT) Pathologist [facility] SPECIMEN TYPE NASAL 05/22/2025 8:46 PM CDT [facility] INFLUENZA A NEGATIVE NEGATIVE 05/22/2025 9:10 PM CDT [facility] INFLUENZA B NEGATIVE NEGATIVE 05/22/2025 9:10 PM CDT [facility] Comment: Interpretation: Negative for Influenza A and B. A negative result does not exclude influenza virus infection. If influenza is circulating in your community, a diagnosis of influenza should be considered based on a patient's clinical presentation and empiric antiviral treatment should be considered, if indicated. If more conclusive testing is needed for hospitalized inpatients, follow-up confirmatory testing with RT-PCR requires a separate order. NASOPHARYNGEAL SWAB / Unknown 05/22/2025 8:19 PM CDT [facility] MICROBIOLOGY - GENERAL ORDERA BLES Final Result [facility] [address] [place] [address], * URINALYSIS (05/22/2025 8:19 PM CDT) SPECIMEN TYPE URINE CLEAN CATCH 05/22/2025 8:35 PM CDT [facility] COLOR (U) COLORLESS 05/22/2025 9:03 PM CDT [facility] TRANSPARENCY CLEAR 05/22/2025 9:03 PM CDT [facility] SPECIFIC GRAVITY (U) 1.007 1.001 - 1.030 05/22/2025 9:03 PM CDT [facility] U PH 5.5 5.0 - 9.0 05/22/2025 9:03 PM CDT [facility] LEUKOCYTES (U) NEGATIVE NEGATIVE 05/22/2025 9:03 PM CDT [facility] NITRITES NEGATIVE NEGATIVE 05/22/2025 9:03 PM CDT [facility] PROTEIN RANDOM (U) NEGATIVE <30 MG/DL 05/22/2025 9:03 PM CDT [facility] GLUCOSE (U) NORMAL NORMAL MG/DL 05/22/2025 9:03 PM CDT [facility] KETONES MG/DL (U) NEGATIVE NEGATIVE MG/DL 05/22/2025 9:03 PM CDT [facility] UROBILINOGEN NORMAL NORMAL MG/DL 05/22/2025 9:03 PM CDT [facility] BILIRUBIN (U) NEGATIVE NEGATIVE MG/DL 05/22/2025 9:03 PM CDT [facility] BLOOD (U) NEGATIVE NEGATIVE 05/22/2025 9:03 PM CDT [facility] URINE SPECIMEN OBTAINED BY CLEAN CATCH PROCEDURE / Unknown 05/22/2025 8:19 PM CDT us Loli Colin PA URINE ORDERABLES Final Result [facility] [address] [place] [address], [place] [phone] * XR CHEST PORTABLE (05/22/2025 7:37 PM CDT) Anatomical Region Laterality Modality Chest Radiographic Hiral ging 05/22/2025 7:45 PM CDT Impressions 05/22/2025 7:46 PM CDT IMPRESSION: No radiographic evidence of active chest disease. Ordered By: LOLI COLIN Interpreted By: Daniel Sanford MD, 05/22/2025 7:45 PM Narrative 05/22/2025 7:46 PM CDT [facility] [address] [place], [place] [address] Examination: XR CHEST PORTABLE Exam time: 05/22/2025 7:16 PM Clinical history: Fever Comparison: 03/23/2025 AP upright view Technique: AP upright view Findings: Multiple external metallic densities related to a bra. Right subclavian Bvfdgd-k-[id number] catheter appears stable with distal tip projecting in proximal to mid superior vena cava region. Cardiac silhouette and pulmonary vasculature are within normal limits. Lungs appear clear. No evidence of pleural effusion. No evidence of pneumothorax. Procedure Note Daniel Sanford MD - 05/22/2025 [facility] [address] [place], [place] [address] Examination: XR CHEST PORTABLE Exam time: 05/22/2025 7:16 PM Clinical history: Fever Comparison: 03/23/2025 AP upright view Technique: AP upright view Findings: Multiple external metallic densities related to a bra. Rightsubclavian Uhnhlc-h-Sqkj catheter appears stable with distal tipprojecting in proximal to mid superior vena cava region. Cardiacsilhouette and pulmonary vasculature are within normal limits. Lungsappear clear. No evidence of pleural effusion. No evidence ofpneumothorax. IMPRESSION: No radiographic evidence of active chest disease. Ordered By: LOLI COLIN Interpreted By: Daniel Sanford MD, 05/22/2025 7:45 PM Loli Colin PA GENERAL IMAGING Final Result * HUMAN PAPILLOMAVIRUS, HIGH-RISK TYPES (04/02/2025 12:00 PM CDT) SPEC DESCRIPTION CERVIX 04/04/20 8:09 AM CDT [facility] HPV DNA HIGH RISK NEGATIVE NEGATIVE 04/04/2025 1:21 PM CDT [facility] Comment:SEE CYTOLOGY REPORT 04/02/2025 12:0 0 PM CDT us Annalisa Lo MD PATHOLOGY/CYTOLOGY ORDER FRANK Final Result [facility] [address] [place] [address], [place] [phone] * Cytopath Cerv/Vag Thin Layer (04/02/2025 12:00 AM CDT) THIN PREP PAP [facility] [address] [place] [address] Department of Pathology Pathology Report CERVICAL/VAGINAL PAP SMEAR REPORT Name: AIDA HAYES Age: 1 1985 (Age: 39) Location: [facility] Sex: F Collected Date: 04/02/2025 [facility] #: [id number] Date Received: 04/04/2025 Date Reported: 04/05/2025 Provider: ANNALISA LO MD INTERPRETATION CERVICAL/ENDOCERVI JIMMY: SATISFACTORY FOR EVALUATION. ENDOCERVICAL/TRANS FORMATION ZONE COMPONENT ABSENT. NEGATIVE FOR INTRAEPITHELIAL LESION OR MALIGNANCY. NEGATIVE FOR HIGH RISK HPV. The FDA approved Aptima HPV assay is an in vitro nucleic acid amplification test for the qualitative detection of E6/E7 viral messenger RNA (mRNA) from 14 high-risk types of human papillomavirus (HPV) in cervical specimens. The high-risk HPV types detected by the assay include: 16,18,31,33,35,39, 45,51,52,56,58,59, 66, and 68. Electronically Signed Out By ELIAS Siddiqui (ASCP) CLINICAL HISTORY Z12.4 CERVICAL CANCER SCREENING SCREENING PAP ThinPrep Pap Test with HR HPV testing in patient > 30 years requested. Date of Last Menstrual Period: 03/17/2025 Menstrual Status: Regular SPECIMEN SUBMITTED CERVICAL/ENDOCERVI JIMMY Specimen Received:1 Thin Prep Vial, Image Assisted Pap (SMD) Please note: The Pap smear is not a diagnostic test. It is a screening test. Negative results on combined screening (Pap test and HPV-DNA) have a high negative predictive value (99.1-100 percent) for cervical cancer. The pap test is not effective in detecting cervical adenocarcinoma. [facility] 04/02/2025 04/04/2025 7:5 0 AM CDT Comment:CERVICAL/ENDOCERVICA L us Annalisa Lo MD PATHOLOGY/CYTOLOGY ORDER FRANK Final Result [facility] [address] [place] [address], from Last 3 Months or Most Recently Relevant to Health Maintenance Insurance [employer] Care Teams Gas[employer] Cr[employer] Operator Relationship Specialty Start Date End Date Annalisa Lo MD [address] [place] [id number] PCP - General FAMILY PRACTICE 10/23/24
--- OUTSIDE RECORDS SUMMARY | 2025-08-17 18:41 | XMS_ITS | Encounter Summary ---
Author Organization [facility] Address [address] [place] [address] Care Team Providers Care Knitter Helper Name Role Phone Lucina Herndon MD Primary Care Provider Lucina Herndon MD Unavailable [phone] Afua Chambers TUNNEL HEADING SUPERVISOR-SALES VICE PRESIDENT Unavailable [phone] Afua Chambers TUNNEL HEADING SUPERVISOR-SALES VICE PRESIDENT Unavailable [phone] Saige Rizzo TUNNEL HEADING SUPERVISOR-SALES VICE PRESIDENT Unavailable Lucina Herndon MD Unavailable Annalisa Ramachandran MD Unavailable [phone] Encounter Details Date Type Department Care Team (Late st Contact [facility]) Description 04/29/2015 Lab Requisition [facility] [address] [place] [address] Unknown, Provider Social History Tobacco Use Types Packs/Day Years Used Date Smoking Tobacco: Never Assessed Comments Unknown Sex and Gender Information Value Date Recorded Sex Assigned at Not on file Legal Sex Female 1:06 AM PROFESSOR OF GEOLOGY Gender Identity Female Sexual Orientation Not on [...] IgG 2986.0 IV 05/01/2015 2:06 PM CDT [facility] ([facility]) Comment: INTERPRETIVE INFORMATION: VZV Ab, IgG 134 [...] 3:47 PM CDT 04/29/2015 6:06 PM CDT us Provider Unknown LAB - CHEMISTRY ORDERABLES Andie l Result [facility] [employer] [facility]) [address] * RUBEOLA ANTIBODY IGG (04/29/2015 3:47 PM CDT) Measles (Rubeola) Antibody IgG >300.0 AU/mL 05/01/2015 3:59 PM CDT [facility] ([facility]) Comment: INTERPRETIVE INFORMATION: Measles (Rubeola) Antibody, IgG [...] PM CDT Provider Unknown LAB - CHEMISTRY ORDERABLES Andie l Result Performing Organization Address [facility] Co de Phone Number [id number] [address] [place] [address] * MUMPS ANTIBODY IGG (04/29/2015 3:47 PM CDT) [facility] Mumps Virus Antibody IgG 223.0 AU/mL 05/01/2015 2:03 PM CDT [employer] ([facility]) Comment: INTERPRETIVE INFORMATION: Mumps Ab, IgG by [...] PM CDT Provider Unknown LAB - CHEMISTRY ORDERABLES Andie l Result Performing Organization Address [facility] Co de Phone Number [facility] [address] [place] [address] [place] * RUBELLA ANTIBODY IGG (04/29/2015 3:47 PM CDT) Rubella Antibody IgG Positive - Immune 04/29/2015 7:33 PM CDT [facility] Blood BLOOD SPECIMEN / Unknown Venipuncture / Unknown 04/29/2015 3:47 PM CDT 04/29/2015 6:06 PM CDT us Provider Unknown LAB - SEROLOGY ORDERABLES Final Result Performing Organization Address [facility] Co de Phone Number [facility] [address] [place] [phone] * (ABNORMAL) HEPATITIS B SURFACE ANTIBODY (04/29/2015 3:47 PM CDT) Pathologist [facility] REACTIVE(A ) Non Reactive 04/29/2015 7:15 PM CDT [facility] Blood BLOOD SPECIMEN / Unknown Venipuncture / Unknown 04/29/2015 3:47 PM CDT 04/29/2015 6:06 PM CDT us Provider Unknown LAB - CHEMISTRY ORDERABLES Andie l Result Performing Organization Address [facility] de Phone Number [facility] [address] [place] [address] [phone] documented in this encounter Visit Diagnoses Not on filedocumented in this encounter Additional Health Concerns Infection Onset Date Last Indicated Resolved Time COVID-19 Under Investigation 08/05/2021 08/05/2021 08/06/2021 2:32 AM PROFESSOR OF GEOLOGY COVID-19 Under Investigation 09/14/2021 09/14/2021 09/14/2021 11:45 AM PROFESSOR OF GEOLOGY COVID-19 Under Investigation 09/29/2021 09/29/2021 09/30/2021 6:42 AM PROFESSOR OF GEOLOGY COVID-19 Confirmed 09/29/2021 09/29/2021 4:33 AM PROFESSOR OF GEOLOGY documented as of this encounter Care Teams Knitter Helper Relationship Specialty Start Date End Date Lucina Herndon MD PCP - General Internal Medicine 02/25/16 02/03/17 Afua Chambers, TUNNEL HEADING SUPERVISOR-SALES VICE PRESIDENT [address] [place] [phone] PCP - Attributed-[facility] 09/27/23 02/10/24 Afua Chambers, TUNNEL HEADING SUPERVISOR-SALES VICE PRESIDENT [address] [place] [phone] PCP - Attributed-[facility] 03/27/24 08/26/24 Saige Rizzo, TUNNEL HEADING SUPERVISOR-SALES VICE PRESIDENT [address] [place] [address] PCP - Attributed-[facility] 08/27/24 11/24/24 Lucina Herndon MD [address] [place] [address] [address] [place] [phone] PCP - Attributed-[facility] 03/12/17 09/29/18 nAnalisa Ramachandran MD [address] [place] [address] PCP - Attributed-[facility] 11/25/24 Lucina Herndon MD Internal Medicine 02/04/17 documented as of this encounter
--- OUTSIDE RECORDS SUMMARY | 2025-08-17 18:41 | XMS_ITS | Clinical Summary ---
Author Organization [facility] [employer] Address [address] [place] [address] Care Team Providers Care Ring Striker Name Role Phone Lucina Herndon MD Unavailable [phone] Annalisa Ramachandran MD Unavailable [phone] Source Comments [facility],non-owned Affiliates and Associated Physician Practices is amultiple site organization consisting of ambulatory clinics and hospital sitesin [place], [place], [place] and [place]. This disclosure is being madepursuant to the Care Everywhere program and may not contain all information available regarding this patient. Last updated 18.[facility] Allergies Active Allergy Reactions Criticality Noted Date Comments Ondansetron Headache 02/04/2017 Medications * Be aware that medications may not be up to date on this document. Alwaysverify current medications with the patient. imiquimod (Aldara) 5 % cream APPLY A THIN LAYER TOPICALLY TO AFFECTED AREA AND COVER WITH DUCT TAPE EVERY NIGHT AT BEDTIME. DISCONTINUE WHEN BLISTERING OCCURS 3 Active predniSONE (Deltasone) 20 MG tablet Take one tablet twice daily for 3 days. Take with food. Avoid NSAIDs. 6 tablet 3 Active fluconazole (Diflucan) 150 MG tablet Take 1 tablet by mouth at symptom onset. May repeat in 3 days if not improved. 2 tablet 4 Active Active Problems Problem Noted Date Diagnosed [...] blood donation GBS bacteriuria 01/29/2017 09/01/2017 Immunizations Immunization Administration Dates Next Due CovMovetis primary monoval ent 12+ yr 0.3mL Purple [...] Recorded Patient Health Questionnaire-2 Score 0 07/29/2024 Stafford Depression Scale Answer Date Recorded Last EPDS Total Score Not on file 01/04/2020 The thought of harming myself has occurred to me . Never 01/04/2020 Comments No Sex and Gender Information Value Date Recorded Sex Assigned at Not on file Legal Sex Female 1:06 AM WAXER Gender Identity Female Sexual Orientation Not on file Occupation Industry Job Start Date Job End Date dietition Not on file Not on file Not [...] 9:16 AM CDT Height 165.1 cm (5' 5) 03/16/2024 9:16 AM CDT Body Mass Index 26.63 03/16/2024 9:16 AM CDT Plan of Treatment Health Maintenance Due Date Last Done Comments HEPATITIS C SCREENING 10/19/2005 HEPATITIS B VACCINE (1 of 3 - 19+ 3-dose series) 2006 HPV VACCINE (1 - 3-dose SCDM series) 2014 DEPRESSION SCREENING 09/27/2024 12/07/2022, 08/24/2022 PAP SMEAR 10/28/2024 10/28/2021, 04/24/2019, 09/14/2016 COVID-19 VACCINE (4 - 2024-2 6 season) 2025 10/21/2021, 10/11/2020, 09/19/2020 INFLUENZA VACCINE (#1) 2025 06/15/2017 Cervical Cancer Screening 10/28/2026 PAP with HPV 10/28/2026 10/28/2021, 04/24/2019 DTAP/TDAP/TD [...] FOR HR POS Routine 10/28/2021 11:25 AM WAXER Well woman exam with routine gynecological exam HIV-1 HIV-2 ANTIBODY + HIV P24 AG PANEL Routine 06/09/2019 3:44 PM CDT Supervision of other normal , antepartum from Last 3 Months or Most Recently Relevant to Health Maintenance Results * PAP IG LB +HPV APTIMA REFLEX 16,18/45 FOR HR POS (10/28/2021 11:25 AM WAXER) Diagnosis [facility] ACCOUNT BILL Comment: NEGATIVE FOR [...] ENTIRE ENDOCERVIX / Unknown 10/28/2021 11:25 AM WAXER 10/29/2021 Narrative [facility] ACCOUNT BILL - 10/31/2021 5:08 PM WAXER No. of containers..01 ThinPrep Vial Resulting Agency Comment Lab Testing performed at: [facility] [id number] Christy Gordon MD LAB - PATHOLOGY/CYTOLOGY ORDERAB LES Final Result [facility] ACCOUNT BILL [address] [place] [address] * HIV-1 HIV-2 ANTIBODY + HIV P24 AG PANEL (06/09/2019 3:44 PM CDT) HIV Screen 4th Generation w Reflex Non Reactive Non Reactive [facility] ACCOUNT BILL Blood BLOOD SPECIMEN / Unknown 06/09/2019 3:44 PM CDT 06/09/2019 Narrative Resulting Agency Comment Lab Testing performed at: [facility] [address] [facility] [id number] [place] Christy Gordon MD LAB - CHEMISTRY ORDERABLES Final Result [facility] ACCOUNT BILL [address] [place] [address] from Last 3 Months or Most Recently Relevant to Health [place] [address] [facility] [employer] Advance Directives Documents on File Type Date Recorded Patient Investment Manager Expl anation Adv Directive/Living Will/POA 02/04/2017 * [...] 10:24 PM 02/14/2017 5:52 PM Care Teams Ring Striker Relationship Specialty Start Date End Date Annalisa Ramachandran MD [address] [place] [address] PCP - Attributed-[facility] 11/25/24 Lucina Herndon MD Internal Medicine 02/04/17
--- OUTSIDE RECORDS SUMMARY | 2025-08-17 18:41 | XMS_ITS | Encounter Summary ---
Author Organization [facility] Address [address] [place] [address] Phone Care Team Providers Care Hot Saw Operator Name Role Phone Provider, None Primary Care Provider Unavailabl Nara Burrell MD Unavailable Encounter Details Date Type Department Care Team (Late st Contact Info) Description 03/20/2025 Telephone [facility] [address] [place] [address] Nara Dumont MD [address] [place] [address] Social History Tobacco Use Types Packs/Day Years Used Date Smoking Tobacco: Never Passive Smoke Exposure: Never Smokeless Tobacco: Never Alcohol Use Standard Drinks/Week Comments Never 0 (1 standard drink = 0.6 oz pur e alcohol) [facility] Utilities Answer Date Recorded In the past 12 months has [employer], gas, oil, or water [employer] threatened to shut off services in your home? No 02/18/2025 Social Connection and Isolation Panel Answer Date Recorded In a typical week, how many times do you talk on the phone with family, friends, or neighbors? More than three times a week 02/18/2025 How often do you get togethe r with friends or relatives? Once a week 02/18/2025 How often do you attend chur ch or bahai services? More than 4 times per year 02/18/2025 Do you belong to any clubs o r organizations such as yarsanism groups, unions, fraternal or athletic groups, or [...] Total Score - Questions 1-9 0 01/26 [facility] - Occupational Stress [...] money to buy more. Never true 02/19/20 25 Within the past 12 months, t he [...] any time in the past 12 [facility], were you homeless or living in a fpc (including now)? No 02/18/2025 Comments No Sex and Gender Information Value Date Recorded Sex Assigned at Female 02/18/2025 5:00 PM CDT Legal Sex Female 4:59 PM CDT Gender Identity Female 03/29/2025 1:49 PM CDT Sexual Orientation Not on file documented as of this encounter Functional Status * BP Answer Date of Assessment Author 118/70 03/21/2025 7:44 AM CDT Gail Guerra RN * Temp Answer Date of Assessment Author 98.4 03/21/2025 7:44 AM CDT Gail Guerra RN * Pulse Answer Date of Assessment Author 113 03/21/2025 7:44 AM CDT Gail Guerra RN * Resp Answer Date of Assessment Author 18 03/21/2025 7:44 AM CDT Gail Guerra RN * SpO2 Answer Date of Assessment Author 98 03/21/2025 7:44 AM CDT Gail Guerra RN * Question Answer Date of Assessment Author Initial Score 0 03/20/2025 9:11 AM CDT Afua Abreu CMA Little interest or pleasure in doing things Not at all 03/20/2025 9:11 AM CDT Afua Man CMA Feeling down, depressed, or hopeless Not at all 03/20/2025 9:11 AM CDT Afua Man , UMBRELLA FRAME MAKER * Question Answer Date of Assessment Author Initial Score 0 03/20/2025 9:11 AM CDT Afua Abreu CMA Little interest or pleasure in doing things Not at all 03/20/2025 9:11 AM CDT Afua Man , UMBRELLA FRAME MAKER Feeling down, depressed, or hopeless Not at all 03/20/2025 9:11 AM CDT Afua Man UMBRELLA FRAME MAKER * Over the past 2 weeks, how often have you been bothered by any of the following problems? Question Answer Date of Assessment Author Patient Health Questionnaire -2 Score 0 03/20/2025 9:11 AM CDT Afua Man CMA documented as of this encounter Mental Status * BP Answer Entry Date Author 118/70 03/21/2025 7:44 AM CDT Gail Guerra RN * Temp Answer Entry Date Author 98.4 03/21/2025 7:44 AM CDT Gail Guerra RN * Pulse Answer Entry Date Author 113 03/21/2025 7:44 AM CDT Gail Guerra RN * SpO2 Answer Entry Date Author 98 03/21/2025 7:44 AM CDT Gail Guerra RN * Question Answer Entry Date Author Initial Score 0 03/20/2025 9:11 AM CDT Afua Abreu CMA Little interest or pleasure in doing things Not at all 03/20/2025 9:11 AM CDT Afua Man CMA Feeling down, depressed, or hopeless Not at all 03/20/2025 9:11 AM CDT Afua Man CMA documented in this encounter Miscellaneous Notes * Telephone Encounter - Jocelyn Nichols - 03/20/2025 11:11 AM CDT Would you be able to put in an order for the echo please? Thank you documented in this encounter Plan of Treatment Upcoming Encounters Date Type Department Care Team (Late st Contact Info) Description 08/21/2025 9:00 AM CAPTURE MANAGER Clinical Support [facility] [address] [phone] 08/21/2025 9:15 AM CAPTURE MANAGER Office Visit [facility] [address] [phone] Nara Dumont MD [address] [place] [phone] documented as of this encounter Visit Diagnoses Not on filedocumented in this encounter Additional Health Concerns Assessment Noted Time PHQ-9 Depression Total Score: 0 02/19/20 25 5:00 PM CDT documented as of this encounter Care Teams Hot Saw Operator Relationship Specialty Start Date End Date Provider, None [place] PCP - General 02/18/25 Nara Dumont MD [address] [place] [address] Consulting Physician Oncology 02/28/25 documented as of this encounter
--- OUTSIDE RECORDS SUMMARY | 2025-08-17 19:11 | XMS_ITS | Clinical Summary ---
Author Organization [facility] Address [facility] [place] [address] Care Team Providers Care Beadworker Name Role Phone Annalisa Lo MD Primary [...] CDT - 05/22/2025 11:33 PM CDT Emergency [facility] [place] [address] Crescencio Ziegler MD Dale, Maurice D, Fever [...] Sex Assigned at Female 10/23/2024 9:16 AM GOLF CLUB FACER Legal Sex Female 3:43 PM GOLF CLUB FACER Gender Identity Female 10/23/2024 9:16 AM GOLF CLUB FACER Sexual Orientation Straight 10/23/2024 9: 16 AM GOLF CLUB FACER Occupation Industry Job Start Date Job End Date 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 Not on file [...] st Contact Info) Description 10/30/2025 9:10 AM GOLF CLUB FACER Office Visit [facility] Family [facility] - [place] [address] [place], [place] [id number] Annalisa Lo MD [address] [place], [place] [id number] Health Maintenance Due Date Last Done Comments [...] Screening wi th HPV 04/02/2030 PHQ-2 (Physician [place]) Completed 02/27/2025 Hepatitis A Vaccines Aged Out [...] this topic Medical Devices Implanted Type Area Handy Man Device Identifier Shelf Expiration Date Model / Serial / Lot Catheter Power Port Mri Implanted 8fr - [id number] Implanted:Qty : 1 on 03/23/2025 by Austen Vidal DO at [facility] Port Right: Neck [employer] [id number] 08/26/2026 [id number] / / [id number] Procedures Procedure Name Priority Date/Time Associated Diagnosis [...] SPEC DESCRIPTION BLOOD 05/22/2025 7:03 PM CDT [facility] SPECIAL REQUESTS NO SPECIAL REQUEST 05/22/2025 7:03 PM CDT [facility] CULTURE RESULT NO GROWTH 5 DAYS 05/27/2025 11:36 PM CDT [facility] BLOOD SPECIMEN OBTAINED FOR BLOOD CULTURE / Unknown 05/22/2025 8:25 PM CDT 05/22/2025 8:47 PM CDT Loli YUSUF MICROBIOLOGY - GENERAL ORDERA BLES Final Result Performing Organization Address City/[facility]/ZIP Co de Phone Number [facility] [address] [place] [address], [place] [phone] * LACTIC ACID W REFLEX (SEPSIS) (05/22/2025 8:20 PM CDT) LACTIC ACID VENOUS 1.2 0.4 - 2.0 MMOL/L 05/22/2025 9:02 PM CDT [facility] 05/22/2025 8:20 PM CDT [facility] LABORATORY Final Result [facility] [address] [place] [address], [place] [phone] * STREP A RAPID (05/22/2025 8:20 PM CDT) SPECIMEN TYPE THROAT 05/22/2025 8:35 PM CDT [facility] RAPID STREP TEST NEGATIVE NEGATIVE 05/22/2025 9:11 PM CDT [facility] STRUCTURE OF ANTERIOR REGION OF NECK / Unknown 05/22/2025 8:20 PM CDT us Loli YUSUF MICROBIOLOGY - GENERAL ORDERA BLES Final Result [facility] [address] [place] [address], [place] [phone] * (ABNORMAL) COMPREHENSIVE METABOLIC PANEL (05/22/2025 8:20 PM CDT) GLUCOSE 90 70 - 99 MG/DL 05/22/2025 9:02 PM CDT [facility] BUN 9 7 - 18 MG/DL 05/22/2025 9:02 PM CDT [facility] CREATININE S/P/B 0.49(L) 0.55 - 1.02 MG/DL 05/22/2025 9:02 PM CDT [facility] SODIUM S/P/B 139 136 - 145 MMOL/L 05/22/2025 9:02 PM CDT [facility] POTASSIUM S/P/B 3.5 3.5 - 5.1 MMOL/L 05/22/2025 9:02 PM CDT [facility] CHLORIDE S/P/B 107 97 - 115 MMOL/L 05/22/2025 9:02 PM CDT [facility] CO2 26.7 21 - 32 MMOL/L 05/22/2025 9:02 PM CDT [facility] CALCIUM S/P/B 9.1 8.5 - 10.1 MG/DL 05/22/2025 9:02 PM CDT [facility] BILIRUBIN TOTAL S/P/B 0.2 0.2 - 1.2 MG/DL 05/22/2025 9:02 PM CDT [facility] Comment: THIS ASSAY IS NOT RECOMMENDED FOR PATIENTS UNDERGOING TREATMENT WITH ELTROMBOPAG DUE TO THE POTENTIAL FOR FALSELY ELEVATED RESULTS. TOTAL PROTEIN S/P/B 7.1 6.4 - 8.2 G/DL 05/22/2025 9:02 PM CDT [facility] ALBUMIN S/P/B 3.5 3.4 - 5.0 G/DL 05/22/2025 9:02 PM CDT [facility] AST 18 15 - 37 U/L 05/22/2025 9:02 PM T [facility] ALT 42 14 - 55 U/L 05/22/2025 9:02 PM T [facility] ALKALINE PHOSPHATASE S/P/B 69 50 - 136 U/L 05/22/2025 9:02 PM T [facility] ANION GAP 5.3 2 - 10 MMOL/L 05/22/2025 9:02 PM T [facility] BUN CREATININE RATIO 18.5 6 - 26 05/22/2025 9:02 PM T [facility] A/G RATIO 1.0 1.0 - 2.0 RATIO 05/22/2025 9:02 PM [facility] GFR ESTIMATE >90 >90 ML/MIN/1.7 3 M2 05/22/2025 9:02 PM T [facility] Comment: NOTE: eGFR is not calculated for patients <18 years of age or gender unknown. This is an estimated GFR calculation using the new CKD EPI creatinine equation without race and so does not require a correction factor for race. This estimated GFR should not be used for calculating drug doses. 05/22/2025 8:20 PM CDT us Loli [facility] LABORATORY Final Result [facility] [address] [place] [address], * (ABNORMAL) CBC W/DIFF AUTOMATED (05/22/2025 8:20 PM CDT) [facility] WBC 3.07(L) 4.5 - 11.0 x10'3/uL 05/22/2025 8:45 PM CDT [facility] RBC 3.90(L) 4.20 - 5.40 x10'6/uL 05/22/2025 8:45 PM CDT [facility] HGB 11.3(L) 12.0 - 16.0 G/DL 05/22/2025 8:45 PM CDT [facility] HCT 34.4(L) 38.0 - 48.0 % 05/22/2025 8:45 PM CDT [facility] MCV 88.2 81.0 - 99.0 FL 05/22/2025 8:45 PM CDT [facility] MCH 29.0 27.0 - 31.0 PG 05/22/2025 8:45 PM CDT [facility] MCHC 32.8 32.0 - 36.0 G/DL 05/22/2025 8:45 PM CDT [facility] RDW 16.3(H) 11.5 - 14.5 % 05/22/2025 8:45 PM CDT [facility] PLT 215 130 - 400 x10'3/uL 05/22/2025 8:45 PM CDT [facility] MPV 11.2 9.3 - 12.2 FL 05/22/2025 8:45 PM CDT [facility] DIFFERENTIAL TYPE MANUAL DIFFERENTIAL 05/22/2025 9:12 PM CDT [facility] SEG NEUTROPHILS 45 % 9:12 PM CDT [facility] LYMPHOCYTES 47 % 05/22/2025 9:12 PM CDT [facility] MONOCYTES 3 % 05/22/2025 9:12 PM CDT [facility] EOSINOPHILS 3 % 05/22/2025 9:12 PM CDT [facility] BASOPHILS 2 % 05/22/2025 9:12 PM CDT [facility] ABS. NEUTROPHILS 1.38(L) 1.80 - 7.70 x10'3/uL 05/22/2025 9:12 PM CDT [facility] ABS. LYMPHOCYTES 1.44 1.00 - 4.80 x10'3/uL 05/22/2025 9:12 PM CDT [facility] ABS. MONOCYTES 0.09(L) 0.24 - 0.86 x10'3/uL 05/22/2025 9:12 PM CDT [facility] ABS. EOSINOPHILS 0.09 0.04 - 0.36 x10'3/uL 05/22/2025 9:12 PM CDT [facility] ABS. BASOPHILS 0.06 0.01 - 0.08 x10'3/uL 05/22/2025 9:12 PM CDT [facility] RBC MORPHOLOGY RBC MORPHOLOGY APPEARS NORMAL. SLIDE REVIEWED. 05/22/2025 9:12 PM CDT [facility] PLT EST. ADEQUATE 05/22/2025 9:12 PM CDT [facility] 05/22/2025 8:20 PM CDT us Loli [facility] LABORATORY Final Result [facility] [address] [place] [address], [place] [phone] * CORONAVIRUS (COVID 19) (05/22/2025 8:19 PM CDT) Pathologist [facility] CORONAVIRUS SARS COV 2 RNA NEGATIVE NEGATIVE 05/22/2025 9:10 PM CDT [facility] Comment: NEGATIVE RESULTS DO NOT RULE [...] SPECIMEN TYPE NASAL 05/22/2025 8:35 PM CDT [facility] NASAL STRUCTURE / Unknown 05/22/2025 8:19 PM CDT us Loli YUSUF MICROBIOLOGY - GENERAL ORDERA BLES Final Result [facility] [address] [place] [address], [place] [phone] * INFLUENZA A & B (05/22/2025 8:19 PM CDT) Pathologist [facility] SPECIMEN TYPE NASAL 05/22/2025 8:46 PM CDT [facility] INFLUENZA A NEGATIVE NEGATIVE 05/22/2025 9:10 PM CDT [facility] INFLUENZA B NEGATIVE NEGATIVE 05/22/2025 9:10 PM CDT [facility] Comment: Interpretation: Negative for Influenza A [...] MICROBIOLOGY - GENERAL ORDERA BLES Final Result [facility] [address] [place] [address], * URINALYSIS (05/22/2025 8:19 PM CDT) SPECIMEN TYPE URINE CLEAN CATCH 05/22/2025 8:35 PM CDT [facility] COLOR (U) COLORLESS 05/22/2025 9:03 PM CDT [facility] TRANSPARENCY CLEAR 05/22/2025 9:03 PM CDT [facility] SPECIFIC GRAVITY (U) 1.007 1.001 - 1.030 05/22/2025 9:03 PM CDT [facility] U PH 5.5 5.0 - 9.0 05/22/2025 9:03 PM CDT [facility] LEUKOCYTES (U) NEGATIVE NEGATIVE 05/22/2025 9:03 PM CDT [facility] NITRITES NEGATIVE NEGATIVE 05/22/2025 9:03 PM CDT [facility] PROTEIN RANDOM (U) NEGATIVE <30 MG/DL 05/22/2025 9:03 PM CDT [facility] GLUCOSE (U) NORMAL NORMAL MG/DL 05/22/2025 9:03 PM CDT [facility] KETONES MG/DL (U) NEGATIVE NEGATIVE MG/DL 05/22/2025 9:03 PM CDT [facility] UROBILINOGEN NORMAL NORMAL MG/DL 05/22/2025 9:03 PM CDT [facility] BILIRUBIN (U) NEGATIVE NEGATIVE MG/DL 05/22/2025 9:03 PM CDT [facility] BLOOD (U) NEGATIVE NEGATIVE 05/22/2025 9:03 PM CDT [facility] URINE SPECIMEN OBTAINED BY CLEAN CATCH PROCEDURE / Unknown 05/22/2025 8:19 PM CDT us Loli Colin PA URINE ORDERABLES Final Result [facility] [address] [place] [address], [place] [phone] * XR CHEST PORTABLE (05/22/2025 7:37 PM CDT) Anatomical Region Laterality Modality Chest Radiographic Hiral ging 05/22/2025 7:45 PM CDT Impressions 05/22/2025 7:46 PM CDT IMPRESSION: No radiographic evidence of active chest disease. Ordered By: LOLI COLIN Interpreted By: Daniel Sanford MD, 05/22/2025 7:45 PM Narrative 05/22/2025 7:46 PM CDT [facility] [address], [place] [address] Examination: XR CHEST PORTABLE Exam time: 05/22/2025 7:16 PM Clinical history: Fever Comparison: 03/23/2025 AP upright view Technique: AP upright view Findings: Multiple external metallic densities related to a bra. Right subclavian Lybcjx-n-Zpnx catheter appears stable with distal tip projecting in proximal to mid superior vena cava region. Cardiac silhouette and pulmonary vasculature are within normal limits. Lungs appear clear. No evidence of pleural effusion. No evidence of pneumothorax. Procedure Note Daniel Sanford MD - 05/22/2025 [facility] [address], [place] [address] Examination: XR CHEST PORTABLE Exam time: 05/22/2025 7:16 PM Clinical history: Fever Comparison: 03/23/2025 AP upright view Technique: AP upright view Findings: Multiple external metallic densities related to a bra. Rightsubclavian Bllsyt-u-Scwc catheter appears stable with distal tipprojecting in [...] SPEC DESCRIPTION CERVIX 04/04/20 8:09 AM CDT [facility] HPV DNA HIGH RISK NEGATIVE NEGATIVE 04/04/2025 1:21 PM CDT [facility] Comment:SEE CYTOLOGY REPORT 04/02/2025 12:0 0 PM CDT us Annalisa Lo MD PATHOLOGY/CYTOLOGY ORDER FRANK Final Result [facility] [address] [place] [address], [place] [phone] * Cytopath Cerv/Vag Thin Layer (04/02/2025 12:00 AM CDT) THIN PREP PAP [facility] [address] [place] [address] Department of Pathology Pathology Report CERVICAL/VAGINAL PAP SMEAR REPORT Name: AIDA HAYES Age: 1 1985 (Age: 39) Location: [facility] Sex: F Collected Date: 04/02/2025 [facility] #: [id number] Date Received: 04/04/2025 Date Reported: 04/05/2025 Provider: [...] is not effective in detecting cervical adenocarcinoma. [facility] 04/02/2025 04/04/2025 7:5 0 AM CDT Comment:CERVICAL/ENDOCERVICA L us Annalisa Lo MD PATHOLOGY/CYTOLOGY ORDER FRANK Final Result [facility] [address] [place] [address], from Last 3 Months or Most Recently Relevant to Health Maintenance Insurance [employer] Care Teams Beadworker Relationship Specialty Start Date End Date Annalisa Lo MD [address] [place] [id number] PCP - General FAMILY PRACTICE 10/23/24
--- OUTSIDE RECORDS SUMMARY | 2025-08-17 19:11 | XMS_ITS | Clinical Summary ---
Author Organization [facility] [employer] Address [address] [facility] [place] [address] Care Team Providers Care Charter Coordinator Name Role Phone Lucina Herndon MD Unavailable [phone] Annalisa Ramachandran MD Unavailable [phone] Source Comments [facility],non-owned Affiliates and Associated Physician Practices is amultiple site organization consisting of ambulatory clinics and hospital sitesin [place], [place], [place] and [place]. This disclosure is being madepursuant to the Care Everywhere program and may not contain all information available regarding this patient. Last updated 18.[facility] Allergies Active Allergy Reactions Criticality Noted Date [...] 09/01/2017 Immunizations Immunization Administration Dates Next Due CovResponseTek primary monoval ent 12+ yr 0.3mL Purple [...] Recorded Patient Health Questionnaire-2 Score 0 07/29/2024 [place] Depression Scale Answer Date Recorded Last EPDS Total Score Not on file 01/04/2020 The thought of harming myself has occurred to me . Never 01/04/2020 Comments No Sex and Gender Information Value Date Recorded Sex Assigned at Not on file Legal Sex Female 1:06 AM WARE FINISHER Gender Identity Female Sexual Orientation Not on [...] FOR HR POS Routine 10/28/2021 11:25 AM WARE FINISHER Well woman exam with routine gynecological exam HIV-1 HIV-2 ANTIBODY + HIV P24 AG PANEL Routine 06/09/2019 3:44 PM CDT Supervision of other normal , antepartum from Last 3 Months or Most Recently Relevant to Health Maintenance Results * PAP IG LB +HPV APTIMA REFLEX 16,18/45 FOR HR POS (10/28/2021 11:25 AM WARE FINISHER) Diagnosis [facility] ACCOUNT BILL Comment: NEGATIVE FOR [...] ENTIRE ENDOCERVIX / Unknown 10/28/2021 11:25 AM WARE FINISHER 10/29/2021 Narrative [facility] ACCOUNT BILL - 10/31/2021 5:08 PM WARE FINISHER No. of containers..01 ThinPrep Vial Resulting Agency Comment Lab Testing performed at: [facility] [id number] Christy Gordon MD LAB - PATHOLOGY/CYTOLOGY ORDERAB LES Final Result [facility] ACCOUNT BILL [address] [place] [address] * HIV-1 HIV-2 ANTIBODY + HIV P24 AG PANEL (06/09/2019 3:44 PM CDT) HIV Screen 4th Generation w Reflex Non Reactive Non Reactive [facility] ACCOUNT BILL Blood BLOOD SPECIMEN / Unknown 06/09/2019 3:44 PM CDT 06/09/2019 Narrative Resulting Agency Comment Lab Testing performed at: [facility] [address] [facility] [phone] [place] Christy Gordon MD LAB - CHEMISTRY ORDERABLES Final Result [facility] ACCOUNT BILL [address] [place] [address] from Last 3 Months or Most Recently Relevant to Health [place] [id number] [facility] WC [facility] Advance Directives Documents on File Type Date Recorded 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
--- OUTSIDE RECORDS SUMMARY | 2025-08-17 19:11 | XMS_ITS | Encounter Summary ---
Author Organization [facility] Address [address] [facility] [place] [address] Care Team Providers Care Airset Molder Name Role Phone Lucina Herndon MD Primary Care Provider Lucina Herndon MD Unavailable Afua Chambers ROCK PICKER-PAPER AND PULP MILL OPERATOR Unavailable [phone] Afua Chambers ROCK PICKER-PAPER AND PULP MILL OPERATOR Unavailable [phone] Saige Rizzo ROCK PICKER-PAPER AND PULP MILL OPERATOR Unavailable [phone] Lucina Herndon MD Unavailable [phone] Annalisa Ramachandran MD Unavailable [phone] Encounter Details Date Type Department Care Team (Late st Contact [facility]) Description 04/29/2015 Lab Requisition [facility] [address] [place] [address] Unknown, Provider Social History Tobacco Use Types Packs/Day Years Used Date Smoking Tobacco: Never Assessed Comments Unknown Sex and Gender Information Value Date Recorded Sex Assigned at Not on file Legal Sex Female 1:06 AM DELICATESSEN CLERK Gender Identity Female Sexual Orientation Not on [...] IgG 2986.0 IV 05/01/2015 2:06 PM CDT [facility] ([facility]) Comment: INTERPRETIVE INFORMATION: VZV Ab, IgG [...] LAB - CHEMISTRY ORDERABLES Andie l Result [facility] PT [facility] [facility]) [address] * RUBEOLA ANTIBODY IGG (04/29/2015 3:47 PM CDT) Measles (Rubeola) Antibody IgG >300.0 AU/mL 05/01/2015 3:59 PM CDT [facility] ([facility]) Comment: INTERPRETIVE INFORMATION: Measles (Rubeola) Antibody, [...] ORDERABLES Andie l Result Performing Organization Address [facility] Co de Phone Number [facility] [address] [place] [address] * MUMPS ANTIBODY IGG (04/29/2015 3:47 PM CDT) [facility] Mumps Virus Antibody IgG 223.0 AU/mL 05/01/2015 2:03 PM CDT [employer] [facility] [place] [facility] ([facility]) Comment: INTERPRETIVE INFORMATION: Mumps Ab, IgG [...] ORDERABLES Andie l Result Performing Organization Address City/[facility] Co de Phone Number [facility]) [address] [place] [address] [place] * RUBELLA ANTIBODY IGG (04/29/2015 3:47 PM CDT) Rubella Antibody IgG Positive - Immune 04/29/2015 7:33 PM CDT [facility] Blood BLOOD SPECIMEN / Unknown Venipuncture / Unknown 04/29/2015 3:47 PM CDT 04/29/2015 6:06 PM CDT us Provider Unknown LAB - SEROLOGY ORDERABLES Final Result Performing Organization Address [facility] Co de Phone Number [facility] [address] [place] [address] * (ABNORMAL) HEPATITIS B SURFACE ANTIBODY (04/29/2015 3:47 PM CDT) Pathologist [facility] HBsAb REACTIVE(A ) Non Reactive 04/29/2015 7:15 PM CDT [facility] Blood BLOOD SPECIMEN / Unknown Venipuncture / Unknown 04/29/2015 3:47 PM CDT 04/29/2015 6:06 PM CDT us Provider Unknown LAB - CHEMISTRY ORDERABLES Andie l Result Performing Organization Address [facility] de Phone Number [facility] [address] [place] [phone] documented in this encounter Visit Diagnoses Not on filedocumented in this encounter Additional Health Concerns Infection Onset Date Last Indicated Resolved Time COVID-19 Under Investigation 08/05/2021 08/05/2021 08/06/2021 2:32 AM DELICATESSEN CLERK COVID-19 Under Investigation 09/14/2021 09/14/2021 09/14/2021 11:45 AM DELICATESSEN CLERK COVID-19 Under Investigation 09/29/2021 09/29/2021 09/30/2021 6:42 AM DELICATESSEN CLERK COVID-19 Confirmed 09/29/2021 09/29/2021 4:33 AM DELICATESSEN CLERK documented as of this encounter Care Teams Airset Molder Relationship Specialty Start Date End Date Lucina Herndon MD PCP - General Internal Medicine 02/25/16 02/03/17 Afua Chambers, ROCK PICKER-PAPER AND PULP MILL OPERATOR [address] [place] [phone] PCP - Attributed-[facility] ST[facility] 09/27/23 02/10/24 Afua Chambers, ROCK PICKER-PAPER AND PULP MILL OPERATOR [address] [place] [phone] PCP - Attributed-[facility] STL 03/27/24 08/26/24 Saige Rizzo, ROCK PICKER-PAPER AND PULP MILL OPERATOR [address] [place] [address] PCP - Attributed-[facility] STL 08/27/24 11/24/24 Lucina Herndon MD [address] [place] [address] [address] [place] [address] PCP - Attributed-[employer] 03/12/17 09/29/18 Annalisa Ramachandran MD [address] [place] [address] PCP - Attributed-[facility] STL 11/25/24 Lucina Herndon MD Internal Medicine 02/04/17 documented as of this encounter
--- OUTSIDE RECORDS SUMMARY | 2025-08-17 19:11 | XMS_ITS | Clinical Summary ---
Author Organization [facility] Address [address] [place] [address] Phone Care Team Providers Care Wildlife Manager Name Role Phone Provider, None Primary Care [...] Take by mouth. Active ergocalciferol (VITAMIN D) 60799 UNIT Capsule Take 1 Capsule by mouth [...] Department Care Team Description 08/09/2025 11:30 AM ACCOUNT SUPPORT SPECIALIST Clinical Support [facility] [address] [address] NurseCelina Classical Hodgkin lymphoma (Primary Dx) 08/07/2025 8:45 AM ACCOUNT SUPPORT SPECIALIST Office Visit [facility] [address] [address] Sully Avendaño, VETERINARIAN, PARTS WASHER Classical Hodgkin lymphoma (Primary Dx); Chemotherapy induced neutropenia; Constipation, unspecified constipation type 08/07/2025 8:30 AM ACCOUNT SUPPORT SPECIALIST Clinical Support [facility] [address] [address] Classical Hodgkin lymphoma (Primary Dx); Night sweats; High risk medication use 08/07/2025 Travel 07/31/2025 11:30 AM ACCOUNT SUPPORT SPECIALIST Office Visit [facility] [address] [address] Missy Doe APRN, PARTS WASHER Skin infection (Primary Dx); Classical Hodgkin lymphoma 07/31/2025 Travel 07/31/2025 Telephone [facility] [address] [address] Nara Dumont MD 07/26/2025 12:00 PM CDT Clinical Support [facility] [address] [address] Nurse, Cc [facility] Classical Hodgkin lymphoma (Primary Dx) 07/26/2025 Refill [facility] [address] [address] Nara Dumont MD Medication Refill 07/25/2025 Results Follow-Up [facility] [address] [address] Trina Hunter, RN VITAMIN D, 25 HYDROXY TOTAL, MAGNESIUM (MG), LACTATE DEHYDROGENASE (LD), Additional followed-up results: 2 07/24/2025 8:45 AM CDT Office Visit [facility] [address] [address] Nara Dumont MD Classical Hodgkin lymphoma (Primary Dx); Night sweats; Vitamin D deficiency 07/24/2025 8:30 AM CDT Clinical Support [facility] [address] [address] Classical Hodgkin lymphoma (Primary Dx); Vitamin D deficiency 07/24/2025 Travel 07/12/2025 1:45 PM CDT Clinical Support [facility] [address] [address] Classical Hodgkin lymphoma (Primary Dx) 07/10/2025 9:00 AM CDT Office Visit [facility] [address] [address] Nara Dumont MD Classical Hodgkin lymphoma (Primary Dx); Vitamin D deficiency 07/10/2025 8:45 AM CDT Clinical Support [facility] [address] [address] Classical Hodgkin lymphoma (Primary Dx); Night sweats; High risk medication use 07/10/2025 Travel 07/03/2025 Refill [facility] [address] [address] Nara Dumont MD Medication Refill 06/28/2025 12:45 PM CDT Clinical Support [facility] [address] [address] Nurse, Cc [facility] Classical Hodgkin lymphoma (Primary Dx) 06/26/2025 9:00 AM CDT Office Visit [facility] [address] [address] Nara Dumont MD Classical Hodgkin lymphoma (HCC) (Primary Dx); Chemotherapy induced neutropenia (HCC); Constipation, unspecified constipation type; Bone pain 06/26/2025 8:45 AM CDT Clinical Support [facility] [address] [address] Classical Hodgkin lymphoma (HCC) (Primary Dx); Night sweats; High risk medication use 06/26/2025 Travel 06/14/2025 11:15 AM CDT Clinical Support [facility] [address] [address] Nurse, Cc [facility] Classical Hodgkin lymphoma (HCC) (Primary Dx) 06/12/2025 9:00 AM CDT Office Visit [facility] [address] [address] Nara Dumont MD Classical Hodgkin lymphoma (HCC) (Primary Dx); Chemotherapy induced neutropenia (HCC); Constipation, unspecified constipation type 06/12/2025 8:45 AM CDT Clinical Support [facility] [address] [address] Classical Hodgkin lymphoma (HCC) (Primary Dx); Night sweats; High risk medication use 06/12/2025 Travel 05/29/2025 8:45 AM CDT Clinical Support [facility] [address] [address] Classical Hodgkin lymphoma (HCC) (Primary Dx) 05/29/2025 8:30 AM CDT Office Visit [facility] [address] [address] Nara Dumont MD Classical Hodgkin lymphoma (HCC) (Primary Dx); Chemotherapy induced neutropenia (HCC); Constipation, unspecified constipation type 05/29/2025 Travel 05/25/2025 9:00 AM CDT Ancillary Procedure [facility] [address] [address] Classical Hodgkin lymphoma (HCC); Chemotherapy induced neutropenia (HCC) 05/25/2025 8:45 AM CDT Lab [facility] [address] [address] [facility] Classical Hodgkin lymphoma (HCC); Chemotherapy induced neutropenia (HCC) 05/25/2025 Travel 05/24/2025 MyChart RX Renewal [facility] [address] [address] Nara Dumont MD Medication Renewal Reviewed from [...] drink = 0.6 oz pur e alcohol) [facility] Utilities Answer Date Recorded In the [...] week 02/18/2025 How often do you attend [facility] or congregational services? More than 4 times per year 02/18/2025 Do you belong to any clubs o r organizations such as latter-day groups, unions, fraternal or athletic groups, or [...] Total Score - Questions 1-9 0 01/26 [facility] [place] of Occupat ional Health - Occupational Stress [...] any time in the past 12 m [facility], were you homeless or living in a halfway (including now)? No 02/18/2025 Comments No Sex and Gender Information Value Date Recorded Sex Assigned at Female 02/18/2025 5:00 PM CDT Legal Sex Female 4:59 PM CDT Gender Identity Female 03/29/2025 1:49 PM CDT Sexual Orientation Not on file Last Filed Vital Signs Vital Sign Reading Time Taken Comments Blood Pressure 122/76 08/07/2025 8:44 AM ACCOUNT SUPPORT SPECIALIST Pulse 72 08/07/2025 8:44 AM ACCOUNT SUPPORT SPECIALIST Temperature 36.7 C (98 F) 08/07/2025 8:44 AM ACCOUNT SUPPORT SPECIALIST Respiratory Rate 16 08/07/2025 8:44 AM ACCOUNT SUPPORT SPECIALIST Oxygen Saturation 98% 08/07/2025 8:44 AM ACCOUNT SUPPORT SPECIALIST Inhaled Oxygen Concentration - - Weight 75.7 kg (166 lb 12.8 oz) 08/07/2025 8:44 AM ACCOUNT SUPPORT SPECIALIST Height 165.1 cm (5' 5) 08/07/2025 8:44 AM ACCOUNT SUPPORT SPECIALIST Body Mass Index 27.76 08/07/2025 8:44 AM ACCOUNT SUPPORT SPECIALIST Plan of Treatment Upcoming Encounters Date Type Department Care Team (Late st Contact Info) Description 08/21/2025 9:00 AM ACCOUNT SUPPORT SPECIALIST Clinical Support [facility] [address] [phone] 08/21/2025 9:15 AM ACCOUNT SUPPORT SPECIALIST Office Visit [facility] [place] [address] [place] [address] Nara Dumont MD [address] [place] [address] Health Maintenance Due Date Last Done Comments [...] (CBC) WITH DIFF Routine 08/07/2025 8:32 AM ACCOUNT SUPPORT SPECIALIST Classical Hodgkin lymphoma Night sweats High risk medication use CMP (COMPREHENSIVE METABOLIC PANEL) Routine 08/07/2025 8:32 AM ACCOUNT SUPPORT SPECIALIST Classical Hodgkin lymphoma Night sweats High risk medication use MAGNESIUM (MG) Routine 08/07/2025 8:32 AM ACCOUNT SUPPORT SPECIALIST Classical Hodgkin lymphoma Night sweats High risk medication use LACTATE DEHYDROGENASE (LD) Routine 08/07/2025 8:32 AM ACCOUNT SUPPORT SPECIALIST Classical Hodgkin lymphoma Night sweats High risk [...] Results * MAGNESIUM (MG) (08/07/2025 8:32 AM ACCOUNT SUPPORT SPECIALIST) Only the most recent of6 resultswithin the time period is included. Magnesium 1.9 1.9 - 2.7 mg/dL [facility] Blood 08/07/2025 8:32 AM ACCOUNT SUPPORT SPECIALIST Narrative [facility] - 08/07/2025 9:37 AM ACCOUNT SUPPORT SPECIALIST Release to patient->Immediate us Nara Dumont MD CHEMISTRY ORDERABLES Final Resul t Performing Organization Address City/[facility]/ZIP Co de Phone Number [facility] [place] [address], * (ABNORMAL) LACTATE DEHYDROGENASE (LD) (08/07/2025 8:32 AM ACCOUNT SUPPORT SPECIALIST) Only the most recent of6 resultswithin the time period is included. LDH 113(L) 140 - 271 U/L [facility] Blood 08/07/2025 8:32 AM ACCOUNT SUPPORT SPECIALIST [facility] - 08/07/2025 9:37 AM ACCOUNT SUPPORT SPECIALIST Release to patient->Immediate us Nara Dumont MD CHEMISTRY ORDERABLES Final Resul t Performing Organization Address City/[facility]/ZIP Co de Phone Number [facility] [place] [address], [place] [phone] * (ABNORMAL) CMP (COMPREHENSIVE METABOLIC PANEL) (08/07/2025 8:32 AM ACCOUNT SUPPORT SPECIALIST) Only the most recent of6 resultswithin the time period is included. Glucose 96 70 - 105 mg/dL [facility] Blood Urea Nitrogen 12 7 - 25 mg/dL [facility] Creatinine 0.5(L) 0.6 - 1.2 mg/dL [facility] Sodium 140 136 - 145 mEq/L [facility] Potassium 3.6 3.5 - 5.1 mEq/L [facility] Chloride 106 98 - 107 mEq/L [facility] Bicarbonate 26 21 - 31 mEq/L [facility] Total Bilirubin 0.3 0.3 - 1.0 mg/dL [facility] Alk. Phosphatase 83 34 - 104 U/L [facility] Aspartate Aminotransferase 23 13 - 39 U/L [facility] Alanine Aminotransferase 35 7 - 52 U/L [facility] Total Protein 6.9 6.4 - 8.9 g/dL [facility] Albumin 4.1 3.5 - 5.7 g/dL [facility] Calcium 9.1 8.6 - 10.3 mg/dL [facility] Anion Gap 11.6 7.0 - 15.0 mEq/L [facility] Globulin 2.8 2.0 - 3.5 g/dL [facility] EGFR 123 >60 ml/min/1. 73m2 [facility] Comment: This eGFR is calculated using 2020 CKD-EPI Creatinine equation without race modifier based on the NKF-ASN task force recommendations Equation: jEVI=710*min(SCr/k,1)a*max(SCr/k,1)-1.200*0.9938Age*1.012 (if female), where SCr is serum creatinine, k is 0.7 for females and 0.9 for males, and a is -0.241 for females and -0.302 for males Blood 08/07/2025 8:32 AM ACCOUNT SUPPORT SPECIALIST Narrative [facility] - 08/07/2025 9:37 AM ACCOUNT SUPPORT SPECIALIST Release to patient->Immediate IS THE PATIENT REQUIRED TO BE FASTING FOR 8 HOURS?->No us Nara Dumont MD CHEMISTRY ORDERABLES Final Resul t [facility] [place] [address], * (ABNORMAL) COMPLETE BLOOD COUNT (CBC) WITH DIFF (08/07/2025 8:32 AM ACCOUNT SUPPORT SPECIALIST) Only the most recent of6 resultswithin the time period is included. WBC 2.2(L) 4.0 - 10.0 10*3/uL [facility] HGB 10.9(L) 11.2 - 15.7 g/dL [facility] HCT 34.0(L) 34.1 - 44.9 % [facility] PLT 229 163 - 369 10*3/uL [facility] MPV 9.5 9.4 - 12.4 fL [facility] RBC 3.53(L) 3.93 - 5.22 10*6/uL [facility] MCV 96(H) 79 - 95 fL [facility] MCH 30.9 25.6 - 32.2 pg [facility] MCHC 32.1(L) 32.2 - 36.5 g/dL [facility] RDW 15.5(H) 11.6 - 14.4 % [facility] Absolute Neutrophil Count 222 cells/uL [facility] Absolute Seg Count 222(L) 1,440 - 6,600 cells/uL [facility] Absolute Lymph Count 1,088 760 - 4,000 cells/uL [facility] Absolute [place] Count 555 160 - 1,200 cells/uL [facility] Absolute Eos Count 289 0 - 300 cells/uL [facility] Absolute Baso Count 67 0 - 100 cells/uL [facility] Segmented Neutrophils 10(L) 36 - 66 % [facility] Lymphocytes 49(H) 19 - 40 % [facility] Monocytes 25(H) 4 - 12 % [facility] Eosinophils 13(H) 0 - 3 % [facility] Basophils 3(H) 0 - 1 % [facility] WBC Estimate Low [facility] Platelet Estimate Normal [facility] RBC Morphology Abnormal CANCE R [facility] Macrocytosis 1+ [facility] Anisocytosis 1+ [facility] Large Platelets Present [facility] ER BUSINESS SOL[facility]IONS CONS[facility] Blood 08/07/2025 8:32 AM ACCOUNT SUPPORT SPECIALIST Narrative [facility] - 08/07/2025 10:10 AM ACCOUNT SUPPORT SPECIALIST Release to patient->Immediate Nara Dumont MD HEMATOLOGY ORDERABLES Final Resu lt Performing Organization Address [facility] de Phone Number [facility] [place] [address], * (ABNORMAL) VITAMIN D, 25 HYDROXY TOTAL (07/24/2025 8:29 AM CDT) 25() Vitamin D, Total 25.5(L) 30.0 - 100.0 ng/mL [facility] Comment: The Clinical Guidelines Subcommittee of the Endocrine Society Task Force established the guidelines below for recommended serum 25(OH) vitamin D levels. Other clinical reference citations may show different values. Deficient <20 Insufficient 20 to <30 Sufficient 30 to 100 Upper Safety Limit >100 Blood 07/24/2025 8:29 AM CDT Narrative [facility] - 07/24/2025 2:20 PM CDT Release to patient->Immediate Nara Dumont MD CHEMISTRY ORDERABLES Final Resul t Performing Organization Address [facility] de Phone Number [facility] [place] [address], * PET CT TUMOR IMAGING SKULL BASE [...] SIGNAL CUTOFF NON REACTIVE NON REACTIVE [facility] HEPATITIS C VIRUS AB COMMENT [facility] Comment: NOT INFECTED WITH HCV UNLESS EARLY OR ACUTE INFECTION IS SUSPECTED (WHICH MAY BE DELAYED IN AN IMMUNOCOMPROMISED INDIVIDUAL), OR OTHER EVIDENCE EXISTS TO INDICATE HCV INFECTION. Blood 03/01/2025 10:3 8 AM CDT Narrative [facility] - 03/02/2025 6:07 AM CDT TESTING PERFORMED AT: [] [facility], [address] [place] [address], [place], [address], PHONE: [phone], GRAIN GRADER: HARESH SCHMITZ, PHD Release to patient->Immediate us Nara Dumont MD CHEMISTRY ORDERABLES Final Resul t [facility] [address] [place] [address], from Last 3 Months or Most Recently Relevant to Health Maintenance Insurance [employer]ICA Care Teams Wildlife Manager Relationship Specialty Start Date End Date Provider, None [place] PCP - General 02/18/25 Nara Dumont MD [address] [place] [id number] Consulting Physician Oncology 02/28/25
--- OUTSIDE RECORDS SUMMARY | 2025-08-17 19:12 | XMS_ITS | Encounter Summary ---
Author Organization [facility] Address [address] [place] [address] Phone Care Team Providers Care Multiple Pressure Riveter Operator Name Role Phone Provider, None Primary Care Provider Unavailabl Nara Burrell MD Unavailable Encounter Details Date Type Department Care Team (Late st Contact Info) Description 03/20/2025 Telephone [facility] [place] [address] [place] [address] Nara Dumont MD [address] [place] [address] Social History Tobacco Use Types Packs/Day Years Used Date Smoking Tobacco: Never Passive Smoke Exposure: Never Smokeless Tobacco: Never Alcohol Use Standard Drinks/Week Comments Never 0 (1 standard drink = 0.6 oz pur e alcohol) [facility] Utilities Answer Date Recorded In the past 12 months has [employer], gas, oil, or water [employer] threatened to shut off services in your [...] often do you attend chur ch or restorationist services? More than 4 times per year 02/18/2025 Do you belong to any clubs o r organizations such as advent groups, unions, fraternal or athletic groups, or [...] Total Score - Questions 1-9 0 01/26 [facility] of Occupat ional Health - [...] any time in the past 12 m [facility], were you homeless or living in a fci (including now)? No 02/18/2025 Comments No Sex [...] 03/20/2025 9:11 AM CDT Afua Man , GAS STATION CLERK * Question Answer Date of Assessment Author Initial Score 0 03/20/2025 9:11 AM CDT Afua Abreu CMA Little interest or pleasure in doing things Not at all 03/20/2025 9:11 AM CDT Afua Man , GAS STATION CLERK Feeling down, depressed, or hopeless Not at all 03/20/2025 9:11 AM CDT Afua Man GAS STATION CLERK * Over the past 2 weeks, how [...] st Contact Info) Description 08/21/2025 9:00 AM SIGNALER Clinical Support [facility] [address] [address] 08/21/2025 9:15 AM SIGNALER Office Visit [facility] [address] [address] Nara Dumont MD [address] [place] [phone] documented as of this encounter Visit Diagnoses Not on filedocumented in this encounter Additional Health Concerns Assessment Noted Time PHQ-9 Depression Total Score: 0 02/19/20 25 5:00 PM CDT documented as of this encounter Care Teams Multiple Pressure Riveter Operator Relationship Specialty Start Date End Date Provider, None [place] PCP - General 02/18/25 Nara Dumont MD [address] [place] [address] Consulting Physician Oncology 02/28/25 documented as of this encounter
--- NOTE | 2025-08-17 20:22 | ED_ITS ---
HPI - General Adult General Chief complaint: Extremity Injury, Lower Stated complaint: fall left ankle injury hx of cancer neutropenia Time Seen by Provider: 08/17/25 18:54 History of Present Illness HPI narrative: 39-year-old female presenting after a left ankle injury. Patient reports she tripped on her shoe causing her toes to catch on the ground in plantar flexion resulting in forced forward bending of the ankle. She maintains good movement and strength. Neurovascular intact. She does have significant lateral ankle edema with mild surrounding ecchymosis. Important history includes active Hodgkin's lymphoma for which she is undergoing chemotherapy. Related Data Allergies Allergy/AdvReac Type Severity Reaction Status Date / Time ondansetron (From Zofran) AdvReac Intermediate Headache Verified 12/28/24 08:15 Review of Systems Review of Systems: All systems reviewed & are unremarkable except as noted in HPI and below Exam Narrative: GENERAL: Well-appearing, well-nourished, and in no acute distress. HEAD: Normocephalic, atraumatic. EYES: PERRLA and EOMI. ENT: Nares clear, no rhinorrhea or epistaxis. Mucous membranes moist. Oropharynx without tonsillar hypertrophy exudate or other lesions. Bilateral TMs pearly goldstein non-bulging NECK: Supple. No adenopathy or masses. No carotid bruits or JVD CHEST: Clear to auscultation. No respiratory distress. No wheezes rales or rhonchi HEART: Regular rate and rhythm. No murmur heard. Normal peripheral pulses. ABDOMEN: Soft, nontender, nondistended, normal active bowel sounds. EXTREMITIES: L lateral ankle edema surrounding the malleolus with mild ecchymosis under the malleolus. Maintains good range of motion only mildly limited by edema. 5/5 strength. Direct malleolar TTP. Good pulses and cap refill. SKIN: Warm, dry, no rash. NEURO: No focal deficits. Alert and oriented x3. PSYCH: Normal mood and affect Medical Decision Making MDM Narrative Medical decision making narrative: 39-year-old female presenting after a left ankle injury. Patient reports she tripped on her shoe causing her toes to catch on the ground in plantar flexion resulting in forced forward bending of the ankle. She maintains good movement and strength. Neurovascular intact. She does have significant lateral ankle edema with mild surrounding ecchymosis. Important history includes active Hodgkin's lymphoma for which she is undergoing chemotherapy. Left ankle x-ray demonstrates soft tissue changes of the sprained lateral ligaments with a small effusion in the ankle joint and a small avulsion chip fracture of the tip of lateral malleolus. A posterior splint was placed by the emergency department auto electrical technician under my supervision. The patient was neurovascularly intact both pre-and post-procedure. Patient declined pain medicine while in the ED but requested to be sent home with a prescription. Given information for outpatient follow-up at [facility] orthopedics in [place] as the patient reports that she does not have insurance coverage for [facility]. Given reasons to return. Medical Records Medical records reviewed: Yes I reviewed the external patient's medical records. Imaging Data Attestation: I personally reviewed and interpreted this imaging study as follows: Radiologist's impression: ITS Impressions Ankle X-Ray 08/17/25 19:05 IMPRESSION: 1. Soft tissue changes of the sprained lateral ligaments. Small effusion in the ankle joint. 2. Small avulsion chip fracture of the tip of lateral malleolus. Discharge Plan Discharge Clinical Impression: Lateral malleolar fracture Patient Disposition: Home Condition: Stable Instructions: Ankle Fracture (ED) Additional Instructions: Return to the ER if you experience fever, redness and swelling of your extremity, numbness or any other symptoms that are concerning to you Wear splint and use crutches. Keep splint dry. No weight on the affected leg until able to bear weight without pain. Elevate extremity. Pain medication as needed and directed. Take pain medicine as needed and prescribed. Do not drive, operate heavy machinery, drink alcohol while on opiates as this may cause further sedation. Follow-up with orthopedics. Follow-up with your doctor for any other general concerns. Patient Language: Sinhala Prescriptions: New hydrocodone-acetaminophen 5-325 mg tablet 1 tablet PO Q6H PRN (Reason: pain) Qty: 20 0RF Follow-up/Referrals: Ramakrishna Yu MD [Other, Orthopedics] Madie,Annalisa Turk MD [Primary Care Provider, Unknown]
== END 2025-08-17 20:53 | disposition home or self-care (01) ==
PROVIDERS: PCP Student in an Organized Health Care Education/Training Program
DX: S82.62XA Displaced fracture of lateral malleolus of left fibula, initial encounter for closed fracture (principal); W01.0XXA Fall on same level from slipping, tripping and stumbling without subsequent striking against object, initial encounter
CPT/HCPCS: 29515; 73610; 99284